=== PATIENT | male | born 1950 | race Caucasian/White ===

== ENCOUNTER → 2017-09-25 | Outpatient (CLI) | payer MEDICARE, MEDICAID ==
[~2017-09-25] MED LIST: ADVAI250I PO; ALBUAER3 INH; ASPI81TA82 PO; BUPR150T3 PO; CARV3.12 PO; CARV3.125 PO; D3 U5000 PO; DIVA250ER PO; DONE10TA7 PO; ENAL5TAB PO; FLUT1SPR9; FOLI1 PO; GABA300C5 PO; GABA600T PO; HYDR-3288 PO; INFL1INJ54 IM; INSU100V2 SQ; INSU1INJ14 SQ; KCL10C PO; LACT10SO PO; LAMO100 PO; LASI20TA PO; LORA-392 PO; LYRI75CA PO; MAPA325T PO; MECL12.574 PO; MELA5 PO; MEMA21CA PO; META0.52 PO; METO1TAB42 PO; NITR0.4S SL; NITR1SUB3 SL; NOVO7030P2 SQ; OXYB5TAB8 PO; PARO40TA2 PO; PAXI20TA26 PO; RISP0.5T2 PO; TAMS0.4C67 PO; THERM PO; THIA100T PO; TRAZ100 PO; VARE1 PO; VENTAER INH; VITA500T83 PO; WAL-10TA2 PO; [UNRECOGNIZED DRUG - CODE] PO
[2017-09-25 09:48] LABS: AUTOMATED NEUTROPHIL # 4.6 TH/MM3 (1.8-7.7); BASOPHIL % 0.3 % (0.0-2.0); EOSINOPHIL # 0.2 TH/MM3 (0-0.4); EOSINOPHIL % 2.7 % (0.0-4.0); HEMATOCRIT 38.3 % (39.0-51.0); HEMOGLOBIN 13.5 GM/DL (13.0-17.0); LYMPH % 19.6 % (9.0-44.0); LYMPHOCYTE # 1.3 TH/MM3 (1.0-4.8); MEAN CELL VOLUME 93.3 FL (80.0-100.0); MEAN CORPUSCULAR HEMOGLOBIN 32.8 PG (27.0-34.0); MEAN CORPUSCULAR HGB CONC 35.2 % (32.0-36.0); MEAN PLATELET VOLUME 6.6 FL (7.0-11.0); MONO % 10.1 % (0.0-8.0); MONOCYTE # 0.7 TH/MM3 (0-0.9); NEUT % 67.3 % (16.0-70.0); PLATELET COUNT 140 TH/MM3 (150-450); RED BLOOD COUNT 4.11 MIL/MM3 (4.50-5.90); RED CELL DISTRIBUTION WIDTH 13.7 % (11.6-17.2); WHITE BLOOD COUNT 6.8 TH/MM3 (4.0-11.0)
[2017-09-25 09:53] LABS: BILIRUBIN, URINE NEG (NEG); BLOOD, URINE NEG (NEG); GLUCOSE,URINE NEG (NEG); KETONE, URINE NEG (NEG); NITRITE,URINE NEG (NEG); SQUAMOUS EPITHELIAL CELL URINE <1 /hpf (0-5); URINE COLOR YELLOW (YELLW/STRAW); URINE LEUKOCYTE ESTERASE NEG (NEG)
[2017-09-25 10:10] LABS: ALBUMIN 3.6 GM/DL (3.4-5.0); AST (GOT) 11 U/L (15-37); BICARBONATE 26.2 MEQ/L (21.0-32.0); BLOOD UREA NITROGEN 13 MG/DL (7-18); CALCIUM 9.2 MG/DL (8.5-10.1); CHLORIDE 99 MEQ/L (98-107); GLOMERULAR FILTRATION RATE 75 ML/MIN (>89); GLUCOSE,FASTING 95 MG/DL (74-99); SODIUM (NA) 134 MEQ/L (136-145)
[2017-09-25 10:11] LABS: ALT (GPT) 24 U/L (12-78)
[2017-09-25 10:13] LABS: ALKALINE PHOSPHATASE 63 U/L (45-117); TOTAL BILIRUBIN ADULT 0.4 MG/DL (0.2-1.0); TOTAL PROTEIN 7.3 GM/DL (6.4-8.2)
--- NOTE | 2017-09-25 10:42 | RADRPT ---
EXAM DATE/TIME: 09/25/2017 09:50 [place] COMPARISON: No previous studies available for comparison. INDICATIONS : Evaluate for pneumonia, pneumothorax or communicable disease. Preop chest for knee replacement surger y on 10/04/17 MEDICAL HISTORY : Chronic obstructive pulmonary disease. Congestive heart failure. asthma, diabetic SURGICAL HISTORY : None. ENCOUNTER: Initial ACUITY: 1 day PAIN SCORE: 0/10 LOCATION: Bilateral chest FINDINGS: Lungs are hyperinflated. Mild chronic appearing interstitial prominence is noted. There is no evidenc e of consolidating air space disease, mass densities or effusions. Heart and mediastinal structures are unremarkable. Osseous structures are intact the CONCLUSION: 1. COPD 2. No acute process. Sammy Chun MD on September 25, 2017 at 10:39 Board Certified Radiologist. This report was verified electronically.
[2017-09-25 16:11] LABS: HEMOGLOBIN A1C 5.8 % (4.3-6.0)
--- NOTE | 2017-09-26 16:54 | EKG ---
Date Performed: 09/25/2017 Time Performed: 08:41:16 PTAGE: 66 years EKG: Sinus rhythm WITH FIRST DEGREE AV BLOCK MARKED LEFT AXIS DEVIATION INTRAVENTRICULAR CONDUCTION DELAY ABNORMAL ECG PREVIOUS TRACING 09/03/2015 @ 12.27.52 Since the previous tracing, no significant change noted DOCTOR: Osorio Vasques Interpretating Date/Time 09/26/2017 16:53:15
== END ==
LOC: CPRE 08:18
PROVIDERS: ATTEND Orthopaedic Surgery
DX: Z01.810 Encounter for preprocedural cardiovascular examination (principal); Z01.811 Encounter for preprocedural respiratory examination; Z01.812 Encounter for preprocedural laboratory examination; Z01.818 Encounter for other preprocedural examination; M17.11 Unilateral primary osteoarthritis, right knee; R94.31 Abnormal electrocardiogram [ECG] [EKG]
CPT/HCPCS: 36415; 71046; 80053; 81001; 83036; 85025; 93005

== ENCOUNTER → 2017-10-19 | Outpatient (CLI) | payer MEDICARE, MEDICAID ==
[~2017-10-19] MED LIST changes: -ADVAI250I PO; -ASPI81TA82 PO; -CARV3.125 PO; -D3 U5000 PO; -FLUT1SPR9; -FOLI1 PO; -GABA600T PO; -KCL10C PO; -LASI20TA PO; -META0.52 PO; -NITR0.4S SL; -NOVO7030P2 SQ; -PAXI20TA26 PO; -TAMS0.4C67 PO; -THERM PO; -THIA100T PO; -TRAZ100 PO; -VENTAER INH; -VITA500T83 PO; -WAL-10TA2 PO; -[UNRECOGNIZED DRUG - CODE] PO
[2017-10-19 12:10] LABS: AUTOMATED NEUTROPHIL # 4.5 TH/MM3 (1.8-7.7); BASOPHIL % 0.4 % (0.0-2.0); EOSINOPHIL # 0.2 TH/MM3 (0-0.4); EOSINOPHIL % 2.8 % (0.0-4.0); HEMATOCRIT 37.5 % (39.0-51.0); LYMPH % 16.1 % (9.0-44.0); MEAN CORPUSCULAR HEMOGLOBIN 32.2 PG (27.0-34.0); MEAN CORPUSCULAR HGB CONC 34.6 % (32.0-36.0); MEAN PLATELET VOLUME 7.1 FL (7.0-11.0); MONO % 8.7 % (0.0-8.0); MONOCYTE # 0.6 TH/MM3 (0-0.9); PLATELET COUNT 116 TH/MM3 (150-450); RED BLOOD COUNT 4.04 MIL/MM3 (4.50-5.90); RED CELL DISTRIBUTION WIDTH 13.3 % (11.6-17.2); WHITE BLOOD COUNT 6.3 TH/MM3 (4.0-11.0)
[2017-10-19 12:51] LABS: BICARBONATE 24.7 MEQ/L (21.0-32.0); CALCIUM 8.7 MG/DL (8.5-10.1); CREATININE 1.07 MG/DL (0.60-1.30)
[2017-10-19 14:38] LABS: BILIRUBIN, URINE NEG (NEG); BLOOD, URINE NEG (NEG); GLUCOSE,URINE >=500 mg/dL (NEG); KETONE, URINE NEG (NEG); MUCUS URINE FEW /lpf (OCC); NITRITE,URINE NEG (NEG); URINE COLOR YELLOW (YELLW/STRAW); URINE LEUKOCYTE ESTERASE NEG (NEG)
== END ==
LOC: CPRE 10:59
PROVIDERS: ATTEND Orthopaedic Surgery
DX: Z01.812 Encounter for preprocedural laboratory examination (principal); M17.11 Unilateral primary osteoarthritis, right knee
CPT/HCPCS: 36415; 80048; 81001; 85025

== ENCOUNTER 2017-11-22 05:23 | Inpatient (IN) ==
--- NOTE | 2017-11-21 20:00 | MH ---
cc: Nathan Oerllana MD, Srinivasa MD DATE OF ADMISSION: 11/22/2017 ADMISSION DIAGNOSIS: End-stage osteoarthritis, right knee. PAST MEDICAL HISTORY: 1. Insulin-dependent diabetes on insulin 2. Heart disease. 3. Hernia repair. 4. Hernia 5. High blood pressure 6. Lung disease due to chronic smoking (patient stopped smoking several weeks ago), 7. Anxiety and depression 8. Low back pain 9. Early dementia. PAST SURGICAL HISTORY: 1. Hernia repair, subsequent to colectomy and colostomy for diverticulosis. 2. Right shoulder surgery in 2009. 3. C5 fusion several years ago. 4. Total hip replacement arthroplasty, right hip, done by the undersigned several years ago. CURRENT MEDICATIONS: 1. Namenda. 2. Metoprolol. 3. Paroxetine. 4. Risperidone 5. Carvedilol . 6. Meclizine. 7. Humulin insulin. 8. Hydrocodone 7.5 as needed for pain, 9. Tylenol as needed. 10. Lorazepam p.r.n. 11. Ventolin inhaler 12. Nitroglycerin as needed. HISTORY OF PRESENT ILLNESS: The patient saw me in 07/2017 complaining of ongoing symptoms of pain and instability of the right knee that has been treated in the past including treatment by Dr. You last year with steroid injections. The patient decided he needed to have total knee replacement and sought the undersigned to do the procedure. Patient was evaluated and treated. He was advised about smoking cessation, proper control her diabetes and other aspects and he was given a steroid injection at the time, which did not help him any. The patient has since been scheduled for a total knee replacement arthroplasty. The diagnosis, treatment, prognosis and the potential risks, hazards, complications, and expected results have all been discussed in detail. His last hemoglobin A1c was below 7. That was done about 2 to 3 months ago. He has been medically evaluated by Dr. Caputo, who sees no contraindication to surgery. The patient had to be postponed recently because of an abrasion several weeks ago of the heel and then he came in with a rash that eventually resolved. Now, he is in proper situation to have the surgery. He has stopped smoking and he uses Chantix. PHYSICAL EXAMINATION: GENERAL: Elderly white male who is awake, alert and oriented. He uses sometimes a cane, sometimes 4 wheeled walker and sometimes walks without assistive device. He has a valgus deformity of the right knee. He has palpable pedal pulses and he moves his toes well. He has some mild or minimal edema of the feet. No pain on range of motion of the right hip. There is pain and tenderness of the lateral joint line. There is some crepitus in the right knee. There is swelling, but no redness or effusion. HEENT: Head is normocephalic. Pupils reactive to light. He wears glasses. Face symmetrical. HEART: Regular rate and rhythm. No murmurs. LUNGS: Clear to auscultation. ABDOMEN: Soft and supple. Patient's preoperative workup included CBC with differential count, CRP and urinalysis are normal. A few weeks ago, he had EKG done which showed no change from EKG done in 2016 with no acute changes. Chest x-ray is unremarkable. The diagnosis, treatment and prognosis and the potential risks, hazards, complications, and expected results, postoperative course, post-hospital course, pain management, nerve blocks have all been discussed with him, venous thrombosis prevention has been discussed. Informed consent obtained. No guarantees made. MD KAPIL Park/ , 07:36 PM , 07:59 PM
[2017-11-22] MEDS ORDERED: Propofol Inj 500 MG/50 ML Vial ONE (06:10)
[2017-11-22] MEDS ORDERED: Sodium Chlor 0.9% Inj 60 ML, Bupivacaine Liposo PF 1.3% Inj 20 ML P-ARTICULR SCH ×2 (06:15)
[2017-11-22] MEDS ORDERED: Insulin NovoLIN Regular Correctional Sugar Inj SQ SCH ×2 (06:15→12:00)
[2017-11-22] MEDS ORDERED: Chlorhexidine Gluconate 2% 1 Pack (2 Cloths) TOPICAL SCH (06:15)
[2017-11-22] MEDS ORDERED: Bupivacaine/Dextrose 0.75% Inj 2 ML Ampul ONE (06:16)
[2017-11-22] MEDS: ceFAZolin 2 GM Premix Inj 2 GM/50 ML PIGGYBACK IV.SIG SCH ×6 (06:30→23:41)
[2017-11-22] MEDS: Vancomycin Inj 1 GM/200 ML PIGGYBACK IV.SIG SCH ×2 (06:30→08:01)
[2017-11-22] MEDS: Metoprolol Tartrate 25 MG Tablet PO SCH (06:34)
[2017-11-22] MEDS ORDERED: Bupivacaine Liposomal PF 1.3% Inj 20 ML Vial ONE (06:36)
[2017-11-22] MEDS ORDERED: Sodium Chlor 0.9% Inj 500 ML IV.SIG SCH (07:00)
[2017-11-22] MEDS: TRANEXAMIC ACID IV.SIG SCH ×2 (07:08→07:58)
[2017-11-22] MEDS: SODIUM CHLOR 0.9% IV.SIG SCH ×2 (07:08→07:58)
[2017-11-22] MEDS ORDERED: Tobramycin Sulfate 1,200 MG Vial (for ortho/sterile core) OTHER ONE (08:07)
[2017-11-22] MEDS ORDERED: TRANEXAMIC ACID IV.SIG SCH (09:15)
[2017-11-22] MEDS ORDERED: SODIUM CHLOR 0.9% IV.SIG SCH (09:15)
[2017-11-22] MEDS ORDERED: Post-op Orders (for Pharmacy) OTHER STA (09:23)
[2017-11-22] MEDS ORDERED: Bisacodyl 10 MG Supp RECTAL PRN (09:23)
[2017-11-22] MEDS ORDERED: Naloxone Inj 0.4 MG/ML Vial IV.PUSH PRN (09:23)
[2017-11-22] MEDS ORDERED: Aluminum/Magnesium/Simethacone Susp 30 ML UDC PO PRN (09:23)
[2017-11-22] MEDS ORDERED: fentaNYL Citrate Inj 100 MCG/2 ML Ampul ONE (09:33)
--- NOTE | 2017-11-22 09:39 | MP ---
cc: Nathan Orellana MD DATE OF OPERATION: 11/22/2017 PREOPERATIVE DIAGNOSIS: Osteoarthritis, right knee. POSTOPERATIVE DIAGNOSIS: Osteoarthritis, right knee. OPERATIVE PROCEDURE: Total knee replacement arthroplasty, right knee using [employer] components. The components were cemented. Femoral component, 70 mm right, tibial component, 75 mm with I-beam stem, polyethylene 12 mm flat. Patella was not resurfaced. SURGEON: Nathan Orellana MD ANESTHESIA: Spinal. TECHNIQUE: After induction of adductor block and spinal anesthesia, the right lower extremity thoroughly prepped with alcohol and ChloraPrep and draped in routine fashion. Tourniquet was not used. A midline incision was made, deepened through subcutaneous tissue. Limited flaps were raised. Medial parapatellar arthrotomy incision was carried out. The findings were that the predominant involvement was lateral compartment where there was a deep divot posterolateral tibial plateau. Patella is quite satisfactory with full-thickness cartilage present and no need to resurface. After initial anterior debridement, the femoral canal opened anterior to the posterior cruciate ligament and the distal femoral cutting guide set at 5 degrees was used to make the distal femoral cut. AP femoral guide was used with proper external rotation taking into account that This is a valgus knee. The AP and chamfer cuts were made for a 70 mm implant. The tibial cut was then made referencing 6 mm from the center of the unaffected medial tibial plateau using the external guide with slight posterior inclination and once this was done, further debridement of the joint was carried out after which a spacer block was used and the spacer block was tight laterally and not medially in extension, but satisfactory in flexion. Therefore, we proceeded to release the arcuate ligament from the lateral tibial plateau posterior to the patellar tendon attachment to the posterolateral corner. The iliotibial band was then cut in a Z-plasty fashion. The spacer block now fits well except it is still tight in extension, but it is symmetrical medially and laterally. Therefore, additional 2 mm of bone was removed from the distal femur, followed by recutting the chamfers and then putting the trial implants in which looked good with a 10 mm spacer, a little tight in extension than the 12 mm spacer. Patella tracks well. Some debridement of the synovium carried out around the patella. The trial implants were removed. Bony surfaces thoroughly lavaged and dried. A diluted Exparel solution injected periarticularly. Femoral canal plugged with bone. Using 2 units of Simplex cement with 1200 mg of tobramycin in it, the tibia was cemented first in satisfactory external rotation, followed by the femur and then extending the knee with a 12 mm insert. Once cement solidified, the knee was tested and decided to stick with the 12 mm poly and a 12 mm poly was inserted and clipped. Final position, alignment and stability were all good. An 1/8 inch Hemovac drain left in the suprapatellar pouch, brought out through a stab incision. A mixture of 100 mL of saline with 17.5 mL of Betadine solution was then placed in the knee joint, 1 with the trial insert in place, and again after the polyethylene insert was placed. Final irrigation was carried out and closure was carried out with the knee in mid flexion with 3 interrupted #2 Vicryl sutures and the rest with running #2 Quill, subcutaneous tissue, 2-0 Vicryl, skin with 3-0 subcuticular Quill and Steri-Strips. Dressings applied Xeroform, 4 x 4s, ABD, Sof-Rol and Dalton bandage incorporating an ice bladder. The patient tolerated the procedure well. TRANSFUSIONS AND COMPLICATIONS: None. POSTOPERATIVE CONDITION: Satisfactory. PROGNOSIS: Good. ESTIMATED BLOOD LOSS: 100 mL. We did not use a tourniquet. MD KAPIL Park/ALEJO , 09:10 AM , 09:37 AM
[2017-11-22] MEDS ORDERED: Acetaminophen 325 MG Tablet PO PRN (09:47)
[2017-11-22] MEDS ORDERED: Morphine Inj 30 MG/30 ML PCA.VIAL PCA PRN (09:47)
[2017-11-22] MEDS ORDERED: Tranexamic Acid Inj 0 MG in Sodium Chlor 0.9% Inj 100 ML IV.SIG ONE (09:47)
[2017-11-22] MEDS ORDERED: Dextrose 50% in Water 50 ML Vial IV.PUSH PRN ×2 (10:01→16:03)
[2017-11-22] MEDS ORDERED: Nitroglycerin SL (Override) 0.4 MG Tab SL PRN (10:05)
[2017-11-22] MEDS ORDERED: Dextrose 50% in Water Syringe 50 ML ONE (10:38)
--- NOTE | 2017-11-22 10:51 | XR ---
EXAM DATE: 11/22/2017 10:40 AM EDT AGE/SEX: 66 years / Male INDICATIONS: Post op right knee. CLINICAL DATA: This is the patient's initial encounter. Patient reports that signs and symptoms have been present for 1 day and indicates a pain score of Nonresponsive. MEDICAL/SURGICAL HISTORY: None. None. COMPARISON: No prior exams available for comparison. FINDINGS: Status post right knee prosthesis. There is good position and alignment of the prosthesis within the bony structures. Postsurgical changes are demonstrated. CONCLUSION: Good position and alignment on this postoperative study. Electronically signed by: Jone Hickman MD 11/22/2017 10:50 AM EDT
[2017-11-22] MEDS: Ketorolac Inj 30 MG/ML (IVP) Vial IV.PUSH SCH ×3 (11:20→23:40)
[2017-11-22] MEDS: Sod Chloride 0.9% Inj 1,000 ML IV.CONT SCH ×2 (11:56→22:16)
[2017-11-22] MEDS: Gabapentin 300 MG Capsule PO SCH ×2 (14:16→18:28)
[2017-11-22] MEDS ORDERED: LORazepam 0.5 MG Tablet PO PRN (16:25)
--- NOTE | 2017-11-22 16:45 | P.CONIM ---
History of Present Illness Consult date: 11/22/17 Reason for Consult: Medical management Primary Care Provider: Remy Caputo MD Family Provider: Remy Caputo MD Chief Complaint: Knee pain History of Present Illness: The patient is a 66-year-old male with past medical history of diabetes, CAD and COPD who is presenting to the hospital for a right knee replacement. The patient says that he has had severe arthritis. He uses a 4 wheeled walker at his assisted living facility. He has been taking Spencer for pain control over there. He says he has had problems falling secondary to vertigo. He says he has had vertigo for a while but it has gotten worse recently. The patient had total right knee replacement on 11/22/2017. He is currently on a DIE REPAIRER TRIMMER DIES pump but still having significant pain. He says he has had right hip surgery in the past and it was not as bad. He thinks he may need extra pain medication on top of the DIE REPAIRER TRIMMER DIES. He says that he has had a bothersome rash on the left side of his body in the flank area. He said it was very itchy. He says he has had a history of scabies and was hoping it was not scabies again. He says that he is prone to constipation. Review of Systems All other systems reviewed negative except as stated in HPI PMFSH - History History Provided By: Patient - Medical History Medical History: Medical History (Last Updated 11/22/17 @ 06:05 by Suad Butler) Hemochromatosis Acute pulmonary edema Anxiety Arthritis Asthma CAD (coronary artery disease) CHF (congestive heart failure) COPD (chronic obstructive pulmonary disease) Cirrhosis of liver Dementia Depression Diabetes Diabetic nephropathy Enlarged prostate Frequent headaches Fusion of spine, cervical region GERD (gastroesophageal reflux disease) H/O ETOH abuse H/O acute myocardial infarction H/O bipolar disorder H/O chest pain H/O gastric ulcer H/O methicillin resistant Staphylococcus aureus H/O scabies Hiatal hernia History of abdominal hernia Hypertension Renal disease Shortness of breath on exertion Skin cancer Sleep apnea Smoker Vertigo Wears glasses Wears partial dentures - Surgical History Surgical History: Surgical History (Last Reviewed 11/22/17 @ 06:05 by Suad Butler) H/O cardiac catheterization H/O inguinal hernia repair H/O rotator cuff surgery History of cholecystectomy History of colostomy reversal History of partial colectomy History of total right hip replacement - Tobacco History Second Hand Smoke Exposure: No Tobacco Use In Past 30 Days: No Smoking Status: Current every day smoker Tobacco Type: Cigarettes Cigarettes Per Day: 5 - Alcohol History How Often Do You Have a Drink Containing Alcohol: Never - Substance Use History Substance History: Past History - Travel History Recent Travel in the [place] Within the Last 8 Weeks: No Recent Travel Out of the Country Within the Last 8 Weeks: No Medications and Allergies Active Medications: Active Medications Acetaminophen (Tylenol) 650 mg PO Q6H PRN PRN Reason: TEMP>100.4F,IRRITABLE Hydrocodone Bitart/Acetaminophen (Spencer 5/325) 2 tab PO Q6H PRN PRN Reason: PAIN SCALE 5 TO 10 Al Hydrox/Mg Hydrox/Simethicone (Mag-Al Plus Susp Liq) 30 ml PO Q6H PRN PRN Reason: INDIGESTION Al Hydroxide/Mg Hydroxide (Milk Of Magnesia Liq) 30 ml PO BID PRN PRN Reason: Mild Constipation Albuterol (Ventolin Hfa Inh) 2 puff INH Q6H PRN PRN Reason: SHORTNESS OF BREATH Bisacodyl (Dulcolax Supp) 10 mg RECTAL DAILY PRN PRN Reason: SEVERE CONSITIPATION Bupropion HCl (Wellbutrin Sr) 150 mg PO DAILY [facility] Carvedilol (Coreg) 3.125 mg PO BID [facility] Chlorhexidine Gluconate (Chlorhexidine 2% Cloth) 3 pack 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 [facility] Stop: 11/25/17 06:09 Last Admin: 11/22/17 05:30 Dose: 3 pack Sodium Chloride 60 ml/ (Bupivacaine Liposome 20 ml) 0 ml P-ARTICULR ONCE [facility] Dextrose (D50w Vial) 50 ml IV.PUSH UNSCH PRN PRN Reason: PER HYPOGLYCEMIA PROTOCOL Diphenhydramine HCl (Benadryl Inj) 25 mg IV.PUSH Q6H PRN PRN Reason: for itching Divalproex Sodium (Depakote Er) 750 mg PO HS [facility] Donepezil HCl (Aricept) 10 mg PO HS [facility] Enalapril Maleate (Vasotec) 5 mg PO DAILY [facility] Gabapentin (Neurontin) 300 mg PO TID [facility] Last Admin: 11/22/17 14:16 Dose: 300 mg Glucagon (Glucagon Inj) 1 mg OTHER UNSCH PRN PRN Reason: for Hypoglycemia Protocol Lactated Ringer's (Lr 1000 Ml Inj) 1,000 mls @ 30 mls/hr IV.SIG .Q24H [facility] Stop: 11/25/17 06:09 Last Admin: 11/22/17 09:11 Dose: 30 mls/hr Sodium Chloride (Ns Inj) 500 mls @ 30 mls/hr IV.SIG .Q10H [facility] Stop: 11/25/17 06:09 Tranexamic Acid 939 mg/ Sodium (Chloride) 109.39 mls @ 200 mls/hr IV.SIG ONCE [facility] Stop: 11/23/17 06:59 Last Admin: 11/22/17 07:58 Dose: 200 mls/hr Tranexamic Acid 939 mg/ Sodium (Chloride) 109.39 mls @ 200 mls/hr IV.SIG ONCE [facility] Stop: 11/23/17 09:14 Last Infusion: 11/22/17 10:49 Dose: 200 mls/hr Cefazolin Sodium/Dextrose (Ancef 2 Gm Premix Inj) 2 gm in 50 mls @ 100 mls/hr IV.SIG PRIMARY [employer] [facility] Stop: 11/26/17 06:59 Last Admin: 11/22/17 07:53 Dose: 100 mls/hr Vancomycin/Sodium Chloride (Vancomycin Inj) 1 gm in 200 mls @ 200 mls/hr IV.SIG PRIMARY [employer] [facility] Stop: 11/26/17 06:59 Last Admin: 11/22/17 08:01 Dose: 200 mls/hr Morphine Sulfate (Morphine Inj) 30 mg in 30 mls @ 0 mls/hr DIE REPAIRER TRIMMER DIES UNSCH PRN PRN Reason: per DIE REPAIRER TRIMMER DIES parameters Stop: 11/23/17 09:46 Sodium Chloride (Ns Inj) 1,000 mls @ 100 mls/hr IV.CONT .Q10H [facility] Last Admin: 11/22/17 11:56 Dose: 100 mls/hr Acetaminophen (Ofirmev Inj) 1,000 mg in 100 mls @ 400 mls/hr IV.SIG Q12HR PRN PRN Reason: PAIN SCALE 1 TO 10 Stop: 11/24/17 20:00 Vancomycin/Sodium Chloride (Vancomycin Inj) 1 gm in 200 mls @ 200 mls/hr IV.SIG Q12H [facility] Stop: 11/23/17 06:59 Cefazolin Sodium/Dextrose (Ancef 2 Gm Premix Inj) 2 gm in 50 mls @ 100 mls/hr IV.SIG Q6H [facility] Stop: 11/23/17 00:29 Last Admin: 11/22/17 11:56 Dose: 100 mls/hr Insulin Aspart (Novolog Insulin Correctional Sugar Inj) [address] [facility]; Protocol Insulin Detemir (Levemir Inj) 10 unit SQ HS [facility] Ketorolac Tromethamine (Toradol Inj) 15 mg IV.PUSH Q6H [facility] Stop: 11/24/17 05:01 Last Admin: 11/22/17 11:20 Dose: Not Given Lamotrigine (Lamictal) 100 mg PO BID [facility] Lorazepam (Ativan) 0.5 mg PO TID PRN PRN Reason: Anxiety Melatonin (Melatonin) 5 mg PO HS [facility] Metoprolol Tartrate (Lopressor) 25 mg PO [employer] [facility] Stop: 11/25/17 06:09 Last Admin: 11/22/17 06:34 Dose: Not Given Metoprolol Tartrate (Lopressor) 25 mg PO DAILY [facility] Miscellaneous Information ([facility] Information) 0 each OTHER UNSCH PRN PRN Reason: SEE DOSE INSTRUCTIONS Miscellaneous Information ([facility] Information) 1 each OTHER UNSCH PRN PRN Reason: SEE LABEL COMMENTS Stop: 11/23/17 09:24 Naloxone HCl (Narcan Inj) 0.4 mg IV.PUSH PRN PRN PRN Reason: Resp rate < 10 Nitroglycerin (Nitrostat Sl (Override)) 0.4 mg SL Q5M PRN PRN Reason: Chest Pain Non-Formulary Medication (Lactulose [Lactulose]) 10 gm PO DAILY PRN PRN Reason: Constipation Ondansetron HCl (Zofran Inj) 4 mg IV.PUSH Q6H PRN PRN Reason: NAUSEA OR VOMITING Oxybutynin Chloride (Ditropan) 5 mg PO BID [facility] Paroxetine HCl (Paxil) 40 mg PO DAILY [facility] Pt Own Med: Menantine 21mg Po Daily 1 each PO DAILY [facility] Povidone Iodine (Betadine 5% Antisepsis Kit) 1 applicatio EACH NARE [employer] [facility] Stop: 11/25/17 06:09 Last Admin: 11/22/17 06:15 Dose: 1 applicatio Povidone Iodine (Betadine 7.5% Scrub) 1 applicatio TOPICAL ONCE [facility] Stop: 11/26/17 06:59 Last Admin: 11/22/17 06:00 Dose: 1 applicatio Pregabalin (Lyrica) 75 mg PO BID [facility] Risperidone (Risperdal) 0.5 mg PO HS [facility] Rivaroxaban (Xarelto) 10 mg PO DAILY [facility] Sennosides (Senokot) 17.2 mg PO BID PRN PRN Reason: Moderate Constipation Sodium Chloride (Ns Flush) 2 ml IV.FLUSH BID [facility] Sodium Chloride (Ns Flush) 2 ml IV.FLUSH PRN PRN PRN Reason: FLUSH AFTER USING IV ACCESS Varenicline (Chantix) 1 mg PO BID [facility] Allergies Allergy/AdvReac Type Severity Reaction Status Date / Time No Known Allergies Allergy Unverified 11/22/17 05:47 Home Medications Medication Instructions Recorded Confirmed Type acetaminophen 325 mg PO Q6H PRN 11/17/17 11/22/17 History acetaminophen 650 mg PO Q6H PRN 11/17/17 11/22/17 History albuterol sulfate [Ventolin HFA] 2 puff INHALATION Q6H PRN 11/17/17 11/22/17 History ammonium lactate [AmLactin] 1 applic TOPICAL BID PRN 11/17/17 11/22/17 History bupropion HCl 150 mg PO QAM 11/17/17 11/22/17 History carvedilol 3.125 mg PO BID 11/17/17 11/22/17 History diphenhydramine HCl [Banophen] 25 mg PO Q6H PRN 11/17/17 11/22/17 History divalproex 750 mg PO HS 11/17/17 11/22/17 History donepezil 10 mg PO HS 11/17/17 11/22/17 History enalapril maleate 5 mg PO DAILY 11/17/17 11/22/17 History gabapentin 300 mg PO TID 11/17/17 11/22/17 History hydrocodone-acetaminophen 1 tab PO Q6H PRN 11/17/17 11/22/17 History insulin degludec [Tresiba 90 unit SUB-Q DAILY 11/17/17 11/22/17 History FlexTouch U-200] insulin regular human [Humulin R 1 sliding scale dose SUB-Q ACHS 11/17/17 History Regular U-100 Insuln] lactulose 10 gm PO DAILY PRN 11/17/17 11/22/17 History lamotrigine 100 mg PO BID 11/17/17 11/22/17 History lorazepam 0.5 mg PO TID PRN 11/17/17 11/22/17 History meclizine 12.5 mg PO TID 11/17/17 11/22/17 History melatonin 5 mg PO HS 11/17/17 11/22/17 History memantine 21 mg PO DAILY 11/17/17 11/22/17 History metoprolol tartrate 25 mg PO DAILY 11/17/17 11/22/17 History nitroglycerin 0.4 mg SUBLINGUAL Q5-15M PRN 11/17/17 11/22/17 History nystatin 1 applic TOPICAL BID 11/17/17 11/22/17 History oxybutynin chloride 5 mg PO BID 11/17/17 11/22/17 History paroxetine HCl 40 mg PO DAILY 11/17/17 11/22/17 History pregabalin [Lyrica] 75 mg PO BID 11/17/17 11/22/17 History risperidone 0.5 mg PO HS 11/17/17 11/22/17 History varenicline [Chantix] 1 mg PO BID 11/17/17 11/22/17 History Exam Vital signs: Vital Signs 11/22/17 06:30 11/22/17 09:25 11/22/17 09:45 Temperature 97.4 F L Pulse Rate 71 63 65 Respiratory Rate 12 12 Blood Pressure 117/56 L 135/70 Pulse Oximetry 100 100 99 11/22/17 10:00 11/22/17 10:15 11/22/17 10:30 Temperature Pulse Rate 63 67 65 Respiratory Rate 14 12 12 Blood Pressure 155/69 H 141/71 H 143/67 H Pulse Oximetry 97 98 99 11/22/17 10:45 11/22/17 11:00 11/22/17 11:10 Temperature Pulse Rate 66 68 Respiratory Rate 12 12 12 Blood Pressure 147/68 H 161/70 H Pulse Oximetry 98 98 11/22/17 11:15 11/22/17 11:30 11/22/17 11:45 Temperature 97.6 F Pulse Rate 66 66 66 Respiratory Rate 12 12 12 Blood Pressure 147/69 H 150/69 H 144/70 H Pulse Oximetry 98 99 99 11/22/17 12:00 Temperature 97.3 F L Pulse Rate 72 Respiratory Rate 20 Blood Pressure 152/72 H Pulse Oximetry 98 Intake & Output 11/21/17 11/22/17 11/22/17 18:59 06:59 18:59 Intake Total 2468.39 / 2468.39 Output Total 500 / 500 Balance 1968.39 / 1968.39 Weight 93.9 kg 93.9 kg Intake: IV 1468.39 / 1468.39 LR 1000 mL Inj 1,000 ML @ 30 1000 / 1000 mls/hr IV.SIG .Q24H [facility] Rx#: [id number] Cyklokapron Inj 939 MG In NS 218.39 / 218.39 Inj 100 ML @ 200 mls/hr IV.SIG ONCE [facility] Rx#:[id number] Vancomycin Inj 1 gm In 200 ml @ 200 / 200 200 mls/hr IV.SIG PRIMARY [employer] [facility] Rx#:[id number] Ancef 2 GM Premix Inj 2 gm In 50 / 50 50 ml @ 100 mls/hr IV.SIG PRIMARY [employer] [facility] Rx#:[id number] Anesthesia Amount 1000 / 1000 Output: Urine 300 / 300 Estimated Blood Loss 100 / 100 Wound Drainage 100 / 100 Right Knee 100 / 100 Other: Date of Last Bowel Movement 11/19/17 Weight On Admission 93.9 kg Narrative: GENERAL: NAD HEENT: NC, AT LUNGS: CTAB HEART: RRR GI: Abdomen soft, nontender EXTREMITIES: Right knee is bandaged. TR-1+ LE extremity edema noted SKIN: Mild rash on left flank NEURO: No gross deficits Results - Labs Labs: Laboratory Results - last 24 hr 11/22/17 11/22/17 11/22/17 06:00 06:15 10:22 POC Glucose 95 70 Blood Type A Positive Blood Type Recheck Not needed Antibody Screen Negative 11/22/17 11:03 POC Glucose 116 H Blood Type Blood Type Recheck Antibody Screen - Imaging Impressions Knee X-Ray 11/22/17 09:44 CONCLUSION: Good position and alignment on this postoperative study. Assessment and Plan - Plan OA S/p right knee replacement 11/22. - pain control with a bowel regimen. - wound care, weightbearing and anticoagulation per surgery. - incentive spirometry. - rehab efforts. DM Type 1. - insulin sliding scale. - Levemir 10 units HS. - adjust regimen as needed. Rash Involving left flank. Appears to be dermatitis, possibly eczema. - trial of steroid cream. PPx: Per surgery
[2017-11-22] MEDS: buPROPion 150 MG 12 HR Tablet PO SCH (17:02)
[2017-11-22] MEDS: Insulin NovoLOG Aspart Correctional Sugar Inj SQ SCH ×2 (17:18→21:14)
[2017-11-22] MEDS ORDERED: Phenylephrine/NS 1000 MCG/10ML Syringe IV.PUSH ONE (17:47)
[2017-11-22] MEDS ORDERED: Vancomycin Inj 1 GM/200 ML PIGGYBACK IV.SIG SCH (18:00)
[2017-11-22] MEDS ORDERED: Vancomycin Inj 1,000 MG in Sodium Chlor 0.9% Inj 250 ML IV.SIG SCH (18:00)
[2017-11-22] MEDS: Pregabalin 75 MG Capsule PO SCH (21:11)
[2017-11-22] MEDS: Divalproex 250 MG ER Tablet PO SCH (21:11)
[2017-11-22] MEDS: Varenicline 1 MG Tablet PO SCH (21:12)
[2017-11-22] MEDS: Hydrocortisone 2.5% Cream 30 GM Tube TOPICAL SCH (21:12)
[2017-11-22] MEDS: lamoTRIgine 100 MG Tablet PO SCH (21:12)
[2017-11-22] MEDS: Insulin Detemir Inj 1,000 UNIT/10 ML Vial SQ SCH (21:13)
[2017-11-22] MEDS: Melatonin 5 MG Tablet PO SCH (22:43)
[2017-11-23] MEDS: Ketorolac Inj 30 MG/ML (IVP) Vial IV.PUSH SCH ×4 (05:38→22:18)
[2017-11-23 05:52] LABS: Calcium 8.1 mg/dL (8.5-10.1); Carbon Dioxide 27.5 meq/L (21.0-32.0); Potassium 4.1 meq/L (3.5-5.1)
[2017-11-23 05:55] LABS: Hematocrit 32.2 % (39.0-51.0); Hemoglobin 11.1 gm/dL (13.0-17.0); Mean Corpuscular HGB Conc 34.5 % (32.0-36.0); Mean Corpuscular Hemoglobin 32.8 pg (27.0-34.0); Mean Corpuscular Volume 95.2 fL (80.0-100.0); Mean Platelet Volume 6.7 fL (7.0-11.0); Platelet Count 101 th/mm3 (150-450); Red Blood Count 3.39 mil/mm3 (4.50-5.90); Red Cell Distribution Width 13.4 % (11.6-17.2); White Blood Count 5.9 th/mm3 (4.0-11.0)
[2017-11-23] MEDS ORDERED: MEMANTINE 21 MG PO SCH (09:00)
[2017-11-23] MEDS: buPROPion 150 MG 12 HR Tablet PO SCH (09:00)
[2017-11-23] MEDS: Hydrocortisone 2.5% Cream 30 GM Tube TOPICAL SCH ×2 (09:00→21:30)
[2017-11-23] MEDS: Metoprolol Tartrate 25 MG Tablet PO SCH ×2 (09:00→10:27)
[2017-11-23] MEDS: Insulin NovoLOG Aspart Correctional Sugar Inj SQ SCH ×3 (10:14→17:00)
[2017-11-23] MEDS: Rivaroxaban 10 MG Tablet PO SCH (10:25)
[2017-11-23] MEDS: lamoTRIgine 100 MG Tablet PO SCH ×2 (10:27→21:28)
[2017-11-23] MEDS: Varenicline 1 MG Tablet PO SCH ×2 (10:27→21:29)
[2017-11-23] MEDS: Pregabalin 75 MG Capsule PO SCH ×2 (10:27→21:29)
[2017-11-23] MEDS: Gabapentin 300 MG Capsule PO SCH ×3 (10:27→18:30)
[2017-11-23] MEDS: Sod Chloride 0.9% Inj 1,000 ML IV.CONT SCH (10:30)
--- NOTE | 2017-11-23 11:24 | P.PNIM ---
Subjective Interval history: The patient was sitting in a chair. He said his pain was controlled. He had no acute complaints. Discussed with nursing. 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 Physical Exam Vital signs: Vital Signs 11/22/17 11:30 11/22/17 11:45 11/22/17 12:00 Temperature 97.6 F 97.3 F L Pulse Rate 66 66 72 Respiratory Rate 12 12 20 Blood Pressure 150/69 H 144/70 H 152/72 H Pulse Oximetry 99 99 98 11/22/17 16:00 11/22/17 17:48 11/22/17 20:00 Temperature 97.5 F L 97.0 F L Pulse Rate 78 78 Respiratory Rate 18 14 18 Blood Pressure 110/54 L 131/62 Pulse Oximetry 100 98 11/23/17 00:00 11/23/17 03:30 11/23/17 04:00 Temperature 97.4 F L 97.6 F Pulse Rate 83 80 Respiratory Rate 18 16 18 Blood Pressure 132/74 117/64 Pulse Oximetry 97 95 11/23/17 08:00 11/23/17 10:40 Temperature 97.5 F L Pulse Rate 78 81 Respiratory Rate 18 Blood Pressure 118/58 L 114/55 L Pulse Oximetry 93 L Intake & Output 11/22/17 11/23/17 11/23/17 18:59 06:59 18:59 Intake Total 2618.39 / 2618.39 1000 / 1000 Output Total 500 / 500 200 / 200 Balance 2118.39 / 2118.39 800 / 800 Weight 93.9 kg 93.9 kg Intake: IV 1618.39 / 1618.39 1000 / 1000 NS Inj 1,000 ML @ 100 mls/hr IV 1000 / 1000 .CONT .Q10H [facility] Rx#:[id number] LR 1000 mL Inj 1,000 ML @ 30 1000 / 1000 mls/hr IV.SIG .Q24H [facility] Rx#: [id number] Cyklokapron Inj 939 MG In NS 218.39 / 218.39 Inj 100 ML @ 200 mls/hr IV.SIG ONCE [facility] Rx#:[id number] Vancomycin Inj 1 gm In 200 ml @ 200 / 200 200 mls/hr IV.SIG PAR[employer]OFESSION[employer] AIDE TE[employer]ER [facility] Rx#:[id number] Ancef 2 GM Premix Inj 2 gm In 200 / 200 50 ml @ 100 mls/hr IV.SIG Q6H [facility] Rx#:[id number] Anesthesia Amount 1000 / 1000 Output: Urine 300 / 300 Estimated Blood Loss 100 / 100 Wound Drainage 100 / 100 200 / 200 Right Knee 100 / 100 200 / 200 Other: Date of Last Bowel Movement 11/19/17 11/19/17 Narrative: GENERAL: NAD HEENT: NC, AT LUNGS: CTAB HEART: RRR GI: Abdomen soft, nontender EXTREMITIES: Right knee is bandaged. TR-1+ LE extremity edema noted SKIN: Mild rash on left flank NEURO: No gross deficits - Urinary Catheter Management Indwelling Urethral Catheter Cath placed during this visit: yes, but has since been removed by the nurse Reason for continuing: Not indwelling catheter Insertion date: 11/23/17 Insertion time: 06:20 Removal date: 11/23/17 Removal time: 06:40 Results - Labs CBC & Chem 7: 11/23/17 04:55 11/23/17 04:55 Laboratory Results - last 24 hr 11/22/17 11/22/17 11/23/17 17:03 21:01 04:55 WBC 5.9 RBC 3.39 L Hgb 11.1 L Hct 32.2 L MCV 95.2 MCH 32.8 MCHC 34.5 RDW 13.4 Plt Count 101 L D MPV 6.7 L Sodium Potassium Chloride Carbon Dioxide Anion Gap BUN Creatinine Estimated GFR POC Glucose 167 H 232 H Random Glucose Calcium 11/23/17 04:55 WBC RBC Hgb Hct MCV MCH MCHC RDW Plt Count MPV Sodium 139 Potassium 4.1 Chloride 104 Carbon Dioxide 27.5 Anion Gap 8 BUN 15 Creatinine 1.16 Estimated GFR 63 L POC Glucose Random Glucose 115 H Calcium 8.1 L Assessment and Plan - Plan OA S/p right knee replacement 11/22. - pain control with a bowel regimen. - wound care, weightbearing and anticoagulation per surgery. - incentive spirometry. - rehab efforts. DM Type 1. Glucose well controlled at this time. - insulin sliding scale. - Levemir 10 units HS. - adjust regimen as needed. Rash Involving left flank. Appears to be dermatitis, possibly eczema. - trial of steroid cream. Thrombocytopenia Chronic and stable. - outpt follow-up. Anemia Post-operative, not far from baseline. - monitor. PPx: Per surgery
[2017-11-23] MEDS: Divalproex 250 MG ER Tablet PO SCH (21:28)
[2017-11-23] MEDS: Melatonin 5 MG Tablet PO SCH (21:29)
[2017-11-23] MEDS: Insulin Detemir Inj 1,000 UNIT/10 ML Vial SQ SCH (21:31)
[2017-11-24] MEDS: Insulin NovoLOG Aspart Correctional Sugar Inj SQ SCH ×5 (02:56→20:44)
[2017-11-24] MEDS: Sod Chloride 0.9% Inj 1,000 ML IV.CONT SCH ×2 (02:56→20:44)
[2017-11-24] MEDS: Ketorolac Inj 30 MG/ML (IVP) Vial IV.PUSH SCH (04:20)
[2017-11-24] MEDS: lamoTRIgine 100 MG Tablet PO SCH ×2 (08:55→20:43)
[2017-11-24] MEDS: Varenicline 1 MG Tablet PO SCH ×2 (08:55→20:42)
[2017-11-24] MEDS: Rivaroxaban 10 MG Tablet PO SCH (08:55)
[2017-11-24] MEDS: buPROPion 150 MG 12 HR Tablet PO SCH (08:56)
[2017-11-24] MEDS: Pregabalin 75 MG Capsule PO SCH ×2 (08:56→20:43)
[2017-11-24] MEDS: Gabapentin 300 MG Capsule PO SCH ×3 (08:56→17:42)
[2017-11-24] MEDS: Hydrocortisone 2.5% Cream 30 GM Tube TOPICAL SCH ×2 (08:58→20:43)
[2017-11-24] MEDS: Metoprolol Tartrate 25 MG Tablet PO SCH (09:00)
--- NOTE | 2017-11-24 14:33 | P.PNIM ---
Subjective Interval history: The patient was sitting up in a chair. He said that his leg was hurting him a lot. He said he still has not had a bowel movement. No other acute complaints. Physical Exam Vital signs: Vital Signs 11/23/17 16:00 11/23/17 19:04 11/24/17 00:40 Temperature 97.7 F 97.7 F 97.8 F Pulse Rate 64 62 84 Respiratory Rate 18 18 18 Blood Pressure 111/60 107/57 L 119/58 L Pulse Oximetry 95 97 11/24/17 08:00 11/24/17 12:00 Temperature 98.2 F 97.3 F L Pulse Rate 70 65 Respiratory Rate 18 19 Blood Pressure 107/53 L 113/55 L Pulse Oximetry 95 95 Intake & Output 11/23/17 11/24/17 11/24/17 18:59 06:59 18:59 Intake Total 620 / 620 360 / 360 Output Total 150 / 150 400 / 400 Balance 470 / 470 -40 / -40 Weight 105.1 kg Intake: Oral 620 / 620 360 / 360 Output: Urine Amount (Catheter) 400 / 400 Indwelling Urethral Catheter 400 / 400 Wound Drainage 150 / 150 Right Knee 150 / 150 Other: # Voids 0 # Incontinent Voids 4 Date of Last Bowel Movement 11/20/17 # Bowel Movements 0 0 Narrative: GENERAL: NAD HEENT: NC, AT LUNGS: CTAB HEART: RRR GI: Abdomen soft, nontender EXTREMITIES: Right knee is bandaged. TR-1+ LE extremity edema noted SKIN: Mild rash on left flank NEURO: No gross deficits - Urinary Catheter Management Indwelling Urethral Catheter Cath placed during this visit: yes, but has since been removed by the nurse Reason for continuing: Not indwelling catheter Insertion date: 11/23/17 Insertion time: 06:20 Removal date: 11/23/17 Removal time: 06:40 Results - Labs CBC & Chem 7: 11/23/17 04:55 11/23/17 04:55 Laboratory Results - last 24 hr 11/23/17 11/23/17 11/24/17 17:06 20:25 08:12 POC Glucose 140 H 196 H 169 H 11/24/17 12:06 POC Glucose 176 H Assessment and Plan - Plan OA S/p right knee replacement 11/22. - pain control with a bowel regimen. - wound care, weightbearing and anticoagulation per surgery. - incentive spirometry. - rehab efforts. DM Type 1. Glucose well controlled at this time. - insulin sliding scale. - Levemir 10 units HS. - adjust regimen as needed. Rash Involving left flank. Appears to be dermatitis, possibly eczema. - trial of steroid cream. Thrombocytopenia Chronic and stable. - outpt follow-up. Anemia Post-operative, not far from baseline. - monitor. Constipation S/t pain meds. - Dulcolax PO and lactulose. Add Per-Colace. PPx: Per surgery Medicine will sign off on this stable patient. Please reconsult as needed.
[2017-11-24] MEDS: Divalproex 250 MG ER Tablet PO SCH (20:42)
[2017-11-24] MEDS: Senna/Docusate Sodium 8.6/50 MG Tablet PO SCH (20:42)
[2017-11-24] MEDS: Melatonin 5 MG Tablet PO SCH (20:43)
[2017-11-24] MEDS: Insulin Detemir Inj 1,000 UNIT/10 ML Vial SQ SCH (20:44)
[2017-11-25] MEDS: Sod Chloride 0.9% Inj 1,000 ML IV.CONT SCH ×2 (06:44→10:44)
[2017-11-25] MEDS: Insulin NovoLOG Aspart Correctional Sugar Inj SQ SCH (10:46)
[2017-11-25] MEDS: Rivaroxaban 10 MG Tablet PO SCH (10:50)
[2017-11-25] MEDS: Varenicline 1 MG Tablet PO SCH (10:50)
[2017-11-25] MEDS: Gabapentin 300 MG Capsule PO SCH ×2 (10:50→16:40)
[2017-11-25] MEDS: lamoTRIgine 100 MG Tablet PO SCH (10:50)
[2017-11-25] MEDS: Senna/Docusate Sodium 8.6/50 MG Tablet PO SCH (10:50)
[2017-11-25] MEDS: Pregabalin 75 MG Capsule PO SCH (10:50)
[2017-11-25] MEDS: Hydrocortisone 2.5% Cream 30 GM Tube TOPICAL SCH (10:51)
--- NOTE | 2017-11-25 13:55 | P.PNIM ---
Subjective Interval history: 11-24 The patient was sitting up in a chair. He said that his leg was hurting him a lot. He said he still has not had a bowel movement. No other acute complaints. 11-25 finally had bm today wants to go to SNF TODAY DW RN AND PT AND CM TO GO TO SNF LATER TODAY Physical Exam Vital signs: Vital Signs 11/24/17 16:00 11/24/17 20:00 11/25/17 00:00 Temperature 98.3 F 97.7 F 97.8 F Pulse Rate 89 103 H 82 Respiratory Rate 18 20 20 Blood Pressure 149/65 H 161/75 H 113/55 L Pulse Oximetry 96 97 96 11/25/17 08:00 Temperature 98.4 F Pulse Rate 81 Respiratory Rate 18 Blood Pressure 137/62 Pulse Oximetry 94 L Intake & Output 11/24/17 11/25/17 11/25/17 18:59 06:59 18:59 Intake Total 480 / 480 Balance 480 / 480 Weight 105.1 kg Intake: Oral 480 / 480 Other: # Voids 3 5 Date of Last Bowel Movement 11/20/17 # Bowel Movements 0 Narrative: AWAKE AND ALERT AND O X3 TALKATIVE AND COOPERATIVE GENERAL: NAD HEENT: NC, AT PERRLA EOMI NECK SUPPLE NO JVD LUNGS: CTAB HEART: RRR GI: Abdomen soft, nontender OBESE EXTREMITIES: Right knee is bandaged. TR-1+ LE extremity edema noted RIGHT LEG DRESSED SKIN: Mild rash on left flank NEURO: No gross deficits - Urinary Catheter Management Indwelling Urethral Catheter Cath placed during this visit: yes, but has since been removed by the nurse Reason for continuing: Not indwelling catheter Insertion date: 11/23/17 Insertion time: 06:20 Removal date: 11/23/17 Removal time: 06:40 Results - Labs CBC & Chem 7: 11/23/17 04:55 11/23/17 04:55 Laboratory Results - last 24 hr 11/24/17 11/24/17 11/25/17 16:50 20:04 08:00 POC Glucose 199 H 192 H 169 H - Imaging Knee X-Ray 11/22/17 09:44 CONCLUSION: Good position and alignment on this postoperative study. - Procedures 11/22/2017 PREOPERATIVE DIAGNOSIS: Osteoarthritis, right knee. POSTOPERATIVE DIAGNOSIS: Osteoarthritis, right knee. OPERATIVE PROCEDURE: Total knee replacement arthroplasty, right knee using [employer] components. The components were cemented. Femoral component, 70 mm right, tibial component, 75 mm with I-beam stem, polyethylene 12 mm flat. Patella was not resurfaced. Assessment and Plan - Plan OA S/p right knee replacement 11/22. - pain control with a bowel regimen. - wound care, weightbearing and anticoagulation per surgery. - incentive spirometry. - rehab efforts. DM Type 1. Glucose well controlled at this time. - insulin sliding scale. - Levemir 10 units HS. - adjust regimen as needed. Rash Involving left flank. Appears to be dermatitis, possibly eczema. - trial of steroid cream. Thrombocytopenia Chronic and stable. - outpt follow-up. Anemia Post-operative, not far from baseline. - monitor. Constipation S/t pain meds. - Dulcolax PO and lactulose. Add Per-Colace. HAD BM CAN GO TO SNF TODAY PPx: Per surgery Medicine will sign off on this stable patient. Please reconsult as needed. Code Status: FULL CODE Discussed Condition With: RN AND PT AND CM Discharge Planning: TO SNF TODAY
--- NOTE | 2017-11-25 14:49 | P.DS ---
Date of admission: 11/22/17 09:23 Primary care physician: Remy Caputo MD Attending physician on discharge: Nathan Orellana Anticipated date of discharge: 11/25/17 Brief History from admission: The patient saw me in 07/2017 complaining of ongoing symptoms of pain and instability of the right knee that has been treated in the past including treatment by Dr. You last year with steroid injections. The patient decided he needed to have total knee replacement and sought the undersigned to do the procedure. Patient was evaluated and treated. He was advised about smoking cessation, proper control her diabetes and other aspects and he was given a steroid injection at the time, which did not help him any. The patient has since been scheduled for a total knee replacement arthroplasty. The diagnosis, treatment, prognosis and the potential risks, hazards, complications, and expected results have all been discussed in detail. His last hemoglobin A1c was below 7. That was done about 2 to 3 months ago. He has been medically evaluated by Dr. Caputo, who sees no contraindication to surgery. The patient had to be postponed recently because of an abrasion several weeks ago of the heel and then he came in with a rash that eventually resolved. Now, he is in proper situation to have the surgery. He has stopped smoking and he uses Chantix. DS: Medications - Discharge Medications Prescriptions: hydrocodone-acetaminophen 1 tab PO Q6H PRN #12 tab PRN Reason: Pain lorazepam 0.5 mg PO TID PRN #9 tab PRN Reason: Anxiety rivaroxaban [Xarelto] 10 mg PO DAILY #30 tab DS: Summary Hospital Course: The patient is a 66-year-old male with past medical history of diabetes, CAD and COPD who is presenting to the hospital for a right knee replacement. The patient says that he has had severe arthritis. He uses a 4 wheeled walker at his assisted living facility. He has been taking [place] for pain control over there. He says he has had problems falling secondary to vertigo. He says he has had vertigo for a while but it has gotten worse recently. The patient had total right knee replacement on 11/22/2017. He is currently on a [employer] pump but still having significant pain. He says he has had right hip surgery in the past and it was not as bad. He thinks he may need extra pain medication on top of the [employer]. He says that he has had a bothersome rash on the left side of his body in the flank area. He said it was very itchy. He says he has had a history of scabies and was hoping it was not scabies again. He says that he is prone to constipation. HAD SURGERY HAD ISSUES WITH CONSTIPATION NOW HAS HAD BMS CAN NOW GO TO SNF FOR AGGRESSIVE REHAB ON HIS RIGHT TKR - Time Spent with Patient Total time spent providing and/or coordinating discharge services: Greater than 30 minutes - Quality: VTE Deep Vein Thrombosis/Pulmonary Embolism Present on Admission: No Exam Vital signs: Vital Signs 11/24/17 16:00 11/24/17 20:00 11/25/17 00:00 Temperature 98.3 F 97.7 F 97.8 F Pulse Rate 89 103 H 82 Respiratory Rate 18 20 20 Blood Pressure 149/65 H 161/75 H 113/55 L Pulse Oximetry 96 97 96 11/25/17 08:00 Temperature 98.4 F Pulse Rate 81 Respiratory Rate 18 Blood Pressure 137/62 Pulse Oximetry 94 L Intake & Output 11/24/17 11/25/17 11/25/17 18:59 06:59 18:59 Intake Total 480 / 480 Balance 480 / 480 Weight 105.1 kg Intake: Oral 480 / 480 Other: # Voids 3 5 Date of Last Bowel Movement 11/20/17 # Bowel Movements 0 Narrative: AWAKE AND ALERT AND O X3 TALKATIVE AND COOPERATIVE GENERAL: NAD HEENT: NC, AT PERRLA EOMI NECK SUPPLE NO JVD LUNGS: CTAB HEART: RRR GI: Abdomen soft, nontender OBESE EXTREMITIES: Right knee is bandaged. TR-1+ LE extremity edema noted RIGHT LEG DRESSED SKIN: Mild rash on left flank NEURO: No gross deficits Results Procedures completed during hospitalization: 11/22/2017 PREOPERATIVE DIAGNOSIS: Osteoarthritis, right knee. POSTOPERATIVE DIAGNOSIS: Osteoarthritis, right knee. OPERATIVE PROCEDURE: Total knee replacement arthroplasty, right knee using [employer] components. The components were cemented. Femoral component, 70 mm right, tibial component, 75 mm with I-beam stem, polyethylene 12 mm flat. Patella was not resurfaced. Completed studies during hospitalization: Laboratory Results WBC 5.9 th/mm3 (4.0-11.0) 11/23/17 04:55 RBC 3.39 mil/mm3 (4.50-5.90) L 11/23/17 04:55 Hgb 11.1 gm/dL (13.0-17.0) L 11/23/17 04:55 Hct 32.2 % (39.0-51.0) L 11/23/17 04:55 MCV 95.2 fL (80.0-100.0) 11/23/17 04:55 MCH 32.8 pg (27.0-34.0) 11/23/17 04:55 MCHC 34.5 % (32.0-36.0) 11/23/17 04:55 RDW 13.4 % (11.6-17.2) 11/23/17 04:55 Plt Count 101 th/mm3 (150-450) L D 11/23/17 04:55 MPV 6.7 fL (7.0-11.0) L 11/23/17 04:55 Sodium 139 meq/L (136-145) 11/23/17 04:55 Potassium 4.1 meq/L (3.5-5.1) 11/23/17 04:55 Chloride 104 meq/L (98-107) 11/23/17 04:55 Carbon Dioxide 27.5 meq/L (21.0-32.0) 11/23/17 04:55 Anion Gap 8 meq/L (5-15) 11/23/17 04:55 BUN 15 mg/dL (7-18) 11/23/17 04:55 Creatinine 1.16 mg/dL (0.60-1.30) 11/23/17 04:55 Estimated GFR 63 mL/min (>89) L 11/23/17 04:55 POC Glucose 169 mg/dl (68-110) H 11/25/17 08:00 Random Glucose 115 mg/dL (74-106) H 11/23/17 04:55 Calcium 8.1 mg/dL (8.5-10.1) L 11/23/17 04:55 Blood Type A Positive 11/22/17 06:15 Blood Type Recheck Not needed 11/22/17 06:15 Antibody Screen Negative 11/22/17 06:15 Impressions Knee X-Ray 11/22/17 09:44 CONCLUSION: Good position and alignment on this postoperative study. Labs on day of discharge: Labs from last 24 hours 11/25/17 11/24/17 11/24/17 08:00 20:04 16:50 POC Glucose 169 H 192 H 199 H - Impressions ITS Impressions Knee X-Ray 11/22/17 09:44 CONCLUSION: Good position and alignment on this postoperative study. Discharge Plan - Discharge Disposition Patient Disposition: 03 Discharge to SNF - Discharge Condition Condition: Stable - Discharge Order Discharge Orders: Discharge Order (Routine); Ordered 11/25/17 Ordered By: Vinny Edmond Hospitalist Clear for Discharge (Routine); Ordered 11/25/17 Ordered By: Vinny Edmond - Discharge Details Anticipated Discharge Date: 11/25/17 Discharge Comment: DC TO SNF - Physicians Team Primary Care Provider: Remy Caputo Attending Provider: Nathan Orellana Other Providers: Vinny Edmond DO - Rxs /Orders / Referrals /Forms Prescriptions: New alum-mag hydroxide-simeth [Mag-Al Plus] 200-200-20 mg/5 mL Suspension 30 ml PO Q6H PRN (Reason: Indigestion) RF: 0 bisacodyl [Bisac-Evac] 10 mg Suppository 10 mg MT DAILY PRN (Reason: Severe Consitipation) RF: 0 hydrocortisone 2.5 % Cream 1 applicatio Topical BID RF: 0 lactulose 20 gram/30 mL Solution 15 ml PO DAILY PRN (Reason: Constipation) RF: 0 magnesium hydroxide [Milk of Magnesia] 400 mg/5 mL Suspension 30 ml PO BID PRN (Reason: Mild Constipation) RF: 0 rivaroxaban [Xarelto] 10 mg Tablet 10 mg PO DAILY Qty: 30 RF: 0 sennosides [Senna Lax] 8.6 mg Tablet 17.2 mg PO BID PRN (Reason: Moderate Constipation) RF: 0 sennosides-docusate sodium [Senna Plus] 8.6-50 mg Tablet 1 tab PO BID RF: 0 Continue acetaminophen 325 mg Tablet 325 mg PO Q6H PRN (Reason: Headache) acetaminophen 325 mg Tablet 650 mg PO Q6H PRN (Reason: Pain) albuterol sulfate [Ventolin HFA] 90 mcg/actuation Hfa Aerosol Inhaler 2 puff INHALATION Q6H PRN (Reason: Shortness Of Breath) ammonium lactate [AmLactin] 12 % Lotion 1 applic TOPICAL BID PRN (Reason: Dry Skin) bupropion HCl 150 mg Tablet Extended Release 24 Hr 150 mg PO QAM carvedilol 3.125 mg Tablet 3.125 mg PO BID diphenhydramine HCl [Banophen] 25 mg Tablet 25 mg PO Q6H PRN (Reason: Allergy Symptoms) divalproex 250 mg Tablet Extended Release 24 Hr 750 mg PO HS donepezil 10 mg Tablet 10 mg PO HS enalapril maleate 5 mg Tablet 5 mg PO DAILY gabapentin 300 mg Capsule 300 mg PO TID hydrocodone-acetaminophen 7.5-325 mg Tablet 1 tab PO Q6H PRN (Reason: Pain) Qty: 12 insulin degludec [Tresiba FlexTouch U-200] 200 unit/mL (3 mL) Insulin Pen 90 unit SUB-Q DAILY insulin regular human [Humulin R Regular U-100 Insuln] 100 unit/mL Solution 1 sliding scale dose SUB-Q ACHS lamotrigine 100 mg Tablet 100 mg PO BID lorazepam 0.5 mg Tablet 0.5 mg PO TID PRN (Reason: Anxiety) Qty: 9 meclizine 12.5 mg Tablet 12.5 mg PO TID melatonin 5 mg Tablet 5 mg PO HS memantine 21 mg Capsule,Sprinkle,Er 24hr 21 mg PO DAILY metoprolol tartrate 25 mg Tablet 25 mg PO DAILY nitroglycerin 0.4 mg Tablet, Sublingual 0.4 mg SUBLINGUAL Q5-15M PRN (Reason: Chest Pain) nystatin 100,000 unit/gram Powder 1 applic TOPICAL BID oxybutynin chloride 5 mg Tablet 5 mg PO BID paroxetine HCl 40 mg Tablet 40 mg PO DAILY pregabalin [Lyrica] 75 mg Capsule 75 mg PO BID risperidone 0.5 mg Tablet 0.5 mg PO HS varenicline [Chantix] 1 mg Tablet 1 mg PO BID Discontinued lactulose 10 gram/15 mL Solution 10 gm PO DAILY PRN (Reason: Constipation) Referrals: Remy Caputo MD [Primary Care Provider] - See Instructions Nathan Orellana MD [Physician] - See Instructions (2 WEEKS) - Discharge Instructions Additional Instructions: Make or keep your follow up appointments as directed. Take medications as directed. Keep surgical dressing clean and dry. - Post Discharge Care Plan Care Plan Goals: Discharge Care Plan Goals for Total Knee Replacement You have undergone knee replacement surgery. Your doctor replaced your painful joint with an artificial joint to relieve pain and restore movement. Here are some goals to help you heal well. Directions to Meet your Goals: 1. Activity & Exercises: * Take pain medicine as directed by your doctor. * Sit in chairs with arms. The arms make it easier for you to stand up or sit down. * Dont sit for more than 30 to 45 minutes at one time. * Nap if you are tired, but dont stay in bed all day. * Sleep with a pillow under your ankle, not your knee. Be sure to change the position of your leg during the night. * Wear the support stockings you were given in the hospital as directed by your surgeon. 2. Prevent Falls/Injury: The campos to successful recovery is movement with walking and exercising your knee as directed by your doctor. * Arrange your household to keep the items you need handy. Keep everything else out of the way. * Remove items that may cause you to fall, such as throw rugs and electrical cords. * Use nonslip bath mats, grab bars, an elevated toilet seat, and a shower chair in your bathroom * Sit on a shower stool or chair when you shower to keep from falling. * Until your balance, flexibility, and strength improve, use a cane, crutches, a walker, handrails, or someone to help you. * Keep your hands free by using a backpack, christine pack, apron, or pockets to carry things * Walk up and down stairs with support. Try one step at a time. Use the railing if possible. * Dont drive until your doctor says its OK. * Dont drive while you are taking opioid pain medicine. 3. Precautions: * Prevent infection. Any infection will need to be treated immediately. Call your doctor right away if you think you might have an infection. * Tell your dentist that you have an artificial joint and take antibiotics as prescribed before any dental work. * Tell all your healthcare providers about your artificial joint before any medical procedure. * Maintain a healthy weight. Get help to lose any extra pounds. Added body weight puts stress on the knee. * Your medications may include blood-thinning medicine to prevent blood clots or antibiotics to prevent infection-prevent any falls or cuts 4. Incision Care: * Prevent infection by washing your hands often. If an infection occurs, it will need to be treated right away. * Call your doctor right away if you think you may have an infection. Symptoms include a fever or an incision that leaks white, green, or yellow fluid. * Don't soak your incision in water until your doctor says its OK. This means no hot tubs, bathtubs, or swimming pools. * Follow your doctor's instructions for changing the dressing. * Dont rub the incision, or apply creams or lotions to it. * If you notice any redness or drainage around the bandage site, contact your surgeon's office immediately. 5. Follow-Up: Do Not miss your follow-up appointment. Keep up with all your appointments and yearly check ups When to call your doctor: Call your doctor right away if you have: Fever of 100.4F (38C) or higher, or as directed by your doctor Shaking chills Stiffness, or inability to move the knee Increased swelling in your leg Increased redness, tenderness, or swelling in or around the knee incision Drainage from the knee incision Increased knee pain Call 911: Call 911 right away if you have: Chest pain Shortness of breath Any pain or tenderness in your calf
[2017-11-25] MEDS: buPROPion 150 MG 12 HR Tablet PO SCH (15:35)
[2017-11-25] MEDS: Metoprolol Tartrate 25 MG Tablet PO SCH (15:35)
--- NOTE | 2017-11-25 16:33 | P.PNOP ---
Subjective Interval history: ready to be discharged Physical Exam Vital signs: Vital Signs 11/24/17 20:00 11/25/17 00:00 11/25/17 08:00 Temperature 97.7 F 97.8 F 98.4 F Pulse Rate 103 H 82 81 Respiratory Rate 20 20 18 Blood Pressure 161/75 H 113/55 L 137/62 Pulse Oximetry 97 96 94 L 11/25/17 12:00 Temperature 97.0 F L Pulse Rate 77 Respiratory Rate 18 Blood Pressure 122/65 Pulse Oximetry 97 Intake & Output 11/24/17 11/25/17 11/25/17 18:59 06:59 18:59 Intake Total 480 / 480 Balance 480 / 480 Weight 105.1 kg Intake: Oral 480 / 480 Other: # Voids 3 5 Date of Last Bowel Movement 11/20/17 # Bowel Movements 0 A,A, and O Sitting up, moves knee and foot well Both feet have 2 plus edema and cool and dark toes, but DP and PT by doppler excellent and good cap refill Left knee dressings clean and dry, - Urinary Catheter Management Indwelling Urethral Catheter Cath placed during this visit: yes, but has since been removed by the nurse Reason for continuing: Not indwelling catheter Insertion date: 11/23/17 Insertion time: 06:20 Removal date: 11/23/17 Removal time: 06:40 Results - Labs CBC & Chem 7: 11/23/17 04:55 11/23/17 04:55 Laboratory Results - last 24 hr 11/24/17 11/24/17 11/25/17 16:50 20:04 08:00 POC Glucose 199 H 192 H 169 H - Procedures 11/22/2017 PREOPERATIVE DIAGNOSIS: Osteoarthritis, right knee. POSTOPERATIVE DIAGNOSIS: Osteoarthritis, right knee. OPERATIVE PROCEDURE: Total knee replacement arthroplasty, right knee using [employer] components. The components were cemented. Femoral component, 70 mm right, tibial component, 75 mm with I-beam stem, polyethylene 12 mm flat. Patella was not resurfaced. Assessment and Plan - Assessment and Plan Discharge to SNF. Dr. Donnelly has already written orders andRx for hydrocodone 7.5/325, , clonozepam , for 3 days and xarelto 10 mfor 30 days. to see me monday for follow up
--- NOTE | 2017-11-25 16:51 | MD ---
cc: Nathan Orellana MD, Srinivasa MD DATE OF DISCHARGE: ADMISSION DIAGNOSIS: End-stage osteoarthritis, right knee. ADDITIONAL DIAGNOSES: 1. Insulin-dependent diabetes mellitus, 2. Depression and early dementia. DISCHARGE DIAGNOSES: 1. Insulin-dependent diabetes mellitus, 2. Depression and early dementia. Longstanding problems with his knee treated nonoperatively, but now having instability and, therefore, he was brought to the hospital and taken to the operating room day of admission. At this time, he had total knee replacement performed with spinal anesthesia and adductor block. Postoperative course has been uneventful. Routine postoperative total knee protocol has been followed with ambulation, weightbearing as tolerated, exercises, dressing changes, etc. The patient was placed on Xarelto 10 mg daily for prophylactic anticoagulation. He is being discharged to a custodial facility with instructions for appropriate wound care, continuation of Xarelto and pain medicines as needed and physical therapy. The patient and skilled nursing to make an appointment for the patient to see me on 12/04/2017. Postoperative labs and x-rays were all satisfactory. Patient discharged improved and stable. MD KAPIL Park/ , 04:36 PM , 04:49 PM
== END 2017-11-25 17:48 ==
LOC: HSDC 05:23 → EDSTATUS 07:00 → HSDI 09:23 → N06 12:28
PROVIDERS: ADMIT Orthopaedic Surgery; ATTEND Orthopaedic Surgery

== ENCOUNTER 2017-12-14 08:37 | Observation (INO) ==
--- NOTE | 2017-12-14 09:57 | XR ---
EXAM DATE: 12/14/2017 9:54 AM EDT AGE/SEX: 67 years / Male INDICATIONS: Shortness of breath after fall. CLINICAL DATA: This is the patient's initial encounter. Patient reports that signs and symptoms have been present for 1 day and indicates a pain score of 0/10. MEDICAL/SURGICAL HISTORY: . Hypertension. Myocardial infarction. Chronic obstructive pulmonary disease. CHF, CAD, Asthma, Diabetic. . Right shoulder. COMPARISON: [facility] – [place], CHEST PA & LAT, 09/25/2017. . FINDINGS: A single AP view of the chest demonstrates the lungs to be symmetrically aerated without evidence of mass, infiltrate or effusion. No pneumothorax. The cardiomediastinal contours are unremarkable. Osse ous structures are intact. Cervical spinal fusion plate and right humeral head anchoring device are n oted. CONCLUSION: No acute disease.. Electronically signed by: Andrea Lofton MD 12/14/2017 9:56 AM EDT
--- NOTE | 2017-12-14 10:15 | ED ---
HPI General Chief Complaint: Extremity Injury, Upper Stated Complaint: Right shoulder pain Time Seen by Provider: 12/14/17 09:28 Source: patient and EMS Mode of arrival: EMS Limitations: no limitations History of Present Illness HPI narrative: 67-year-old male states he was on the toilet and must have fallen asleep and next thing he knows he was falling and hit his head, right shoulder, and right knee. He states a couple weeks ago he had a right knee replacement with Dr. Orellana. He states he does not take any blood thinner medications. He denies any chest pain or shortness of breath or other concurrent complaints. MD complaint: fall Onset (ago): hour(s) Loss of Consciousness: no Location: head Location - Extremities: Right: shoulder and knee Context: fall Related Data Home Medications Medication Instructions Recorded Confirmed acetaminophen 325 mg PO Q6H PRN 11/17/17 12/14/17 acetaminophen 650 mg PO Q6H PRN 11/17/17 12/14/17 albuterol sulfate [Ventolin HFA] 2 puff INHALATION Q6H PRN 11/17/17 12/14/17 ammonium lactate [AmLactin] 1 applic TOPICAL BID PRN 11/17/17 12/14/17 bupropion HCl 150 mg PO QAM 11/17/17 12/14/17 carvedilol 3.125 mg PO BID 11/17/17 12/14/17 diphenhydramine HCl [Banophen] 25 mg PO Q6H PRN 11/17/17 12/14/17 divalproex 750 mg PO HS 11/17/17 12/14/17 donepezil 10 mg PO HS 11/17/17 12/14/17 enalapril maleate 5 mg PO DAILY 11/17/17 12/14/17 gabapentin 300 mg PO TID 11/17/17 12/14/17 insulin degludec [Tresiba 90 unit SUB-Q DAILY 11/17/17 12/14/17 FlexTouch U-200] lamotrigine 100 mg PO BID 11/17/17 12/14/17 meclizine 12.5 mg PO TID 11/17/17 12/14/17 memantine 21 mg PO DAILY 11/17/17 12/14/17 metoprolol tartrate 25 mg PO DAILY 11/17/17 12/14/17 nitroglycerin 0.4 mg SUBLINGUAL Q5-15M PRN 11/17/17 12/14/17 oxybutynin chloride 5 mg PO BID 11/17/17 12/14/17 paroxetine HCl 40 mg PO DAILY 11/17/17 12/14/17 pregabalin [Lyrica] 75 mg PO BID 11/17/17 12/14/17 risperidone 0.5 mg PO HS 11/17/17 12/14/17 alum-mag hydroxide-simeth [Maalox 30 ml PO Q6H PRN 12/14/17 12/14/17 Maximum Strength] hydrocortisone 1 applic TOPICAL BID 12/14/17 12/14/17 insulin regular human [Novolin R 1 sliding scale dose SUB-Q ACHS 12/14/17 Regular U-100 Insuln] melatonin 6 mg PO HS 12/14/17 12/14/17 sodium phosphates [Fleet Enema] 118 ml AL DIRECTED PRN 12/14/17 12/14/17 Previous Rx's Medication Instructions Recorded bisacodyl [Bisac-Evac] 10 mg AL DAILY PRN ea 11/25/17 hydrocodone-acetaminophen 1 tab PO Q6H PRN #12 tab 11/25/17 lorazepam 0.5 mg PO TID PRN #9 tab 11/25/17 magnesium hydroxide [Milk of 30 ml PO BID PRN ml 11/25/17 Magnesia] sennosides [Senna Lax] 17.2 mg PO BID PRN tab 11/25/17 sennosides-docusate sodium [Senna 1 tab PO BID tab 11/25/17 Plus] Allergies Allergy/AdvReac Type Severity Reaction Status Date / Time No Known Allergies Allergy Verified 12/14/17 09:01 Review of Systems ROS: all other systems reviewed are negative [facility] Medical History Medical History Acute pulmonary edema (Acute) Anxiety (Acute) Arthritis (Acute) Asthma (Acute) CAD (coronary artery disease) (Acute) CHF (congestive heart failure) (Acute) COPD (chronic obstructive pulmonary disease) (Acute) Cirrhosis of liver (Acute) Dementia (Acute) Depression (Acute) Diabetes (Acute) Diabetic nephropathy (Acute) Enlarged prostate (Acute) Frequent headaches (Acute) Fusion of spine, cervical region (Acute) GERD (gastroesophageal reflux disease) (Acute) H/O ETOH abuse (Acute) H/O acute myocardial infarction (Acute) H/O bipolar disorder (Acute) H/O chest pain (Acute) H/O gastric ulcer (Acute) H/O methicillin resistant Staphylococcus aureus (Acute) H/O scabies (Acute) Hemochromatosis (Acute) Hiatal hernia (Acute) History of abdominal hernia (Acute) Hypertension (Acute) Renal disease (Acute) Shortness of breath on exertion (Acute) Skin cancer (Acute) Sleep apnea (Acute) Smoker (Acute) Vertigo (Acute) Wears glasses (Acute) Wears partial dentures (Acute) Surgical History Surgical History H/O cardiac catheterization (Acute) H/O inguinal hernia repair (Acute) H/O rotator cuff surgery (Acute) History of cholecystectomy (Acute) History of colostomy reversal (Acute) History of partial colectomy (Acute) History of total right hip replacement (Acute) Social History Social History Substance History: No History of Abuse Second Hand Smoke Exposure: No Smoking Status: Former smoker Tobacco Type: Cigarettes Cigarettes Per Day: 5 How Often Do You Have a Drink Containing Alcohol: Never Recent Travel in [facility] within the Last 8 Weeks: No Recent Out of Country Travel within the Last 8 Weeks: No Immunization History Tetanus Immunization: Unsure Hx Influenza Vaccine This Season: Yes Exam Narrative Exam Narrative: General: 67 y/o patient in no apparent distress Skin: trauma noted to right shoulder with swelling, postop incision to right knee appears well healing Eyes: Pupils equal, eomi ENT: no septal hematoma NECK: no pain with palpation, nexus criteria negative Cardiovascular: Regular rate and rhythm Respiratory: Normal respiratory effort noted, clear to auscultation bilaterally Abdomen: soft, nontender, nondistended Back: No step-offs, midline spine nontender with palpation Extremities: Pain with palpation of right knee and shoulder, no lacerations over , neurovascularly intact, no pain with palpation of other joints Neuro: awake, alert, sensation and motor grossly intact Course Reevaluation(s) Reevaluation #1: Patient with new hyponatremia of 126 and unknown cause of fall. Will admit to the hospital for observation. Consultations Consultation #1: dr wilhelm agrees to admit Initial Documented Vital Signs Temperature 97.8 F 12/14/17 08:54 Pulse Rate 63 12/14/17 08:54 Respiratory Rate 14 12/14/17 08:54 Blood Pressure 158/73 H 12/14/17 08:54 Pulse Oximetry 99 12/14/17 08:54 Last Documented Vital Signs Temperature 97.8 F 12/14/17 09:00 Pulse Rate 66 12/14/17 11:37 Respiratory Rate 18 12/14/17 11:37 Blood Pressure 179/76 H 12/14/17 11:37 Pulse Oximetry 100 12/14/17 11:37 Medical Decision Making MDM Narrative Medical decision making narrative: Will check blood work, imaging and reevaluate Differential Diagnosis Differential Diagnosis: Fracture, sprain, strain, possible syncope Lab Data Lab results reviewed: Yes I reviewed the patient's lab results. Result diagrams: 12/14/17 10:35 12/14/17 10:35 Lab Results 12/14/17 12/14/17 Range/Units 10:35 10:35 WBC 6.8 (4.0-11.0) th/mm3 RBC 3.87 L (4.50-5.90) mil/mm3 Hgb 13.0 (13.0-17.0) gm/dL Hct 37.9 L (39.0-51.0) % MCV 97.9 (80.0-100.0) fL MCH 33.5 (27.0-34.0) pg MCHC 34.2 (32.0-36.0) % RDW 14.5 (11.6-17.2) % Plt Count 157 D (150-450) th/mm3 MPV 6.2 L (7.0-11.0) fL Neut % (Auto) 70.7 H (16.0-70.0) % Lymph % (Auto) 14.5 (9.0-44.0) % [place] % (Auto) 11.7 H (0.0-8.0) % Eos % (Auto) 2.7 (0.0-4.0) % Baso % (Auto) 0.4 (0.0-2.0) % Neut # (Auto) 4.8 (1.8-7.7) th/mm3 Lymph # (Auto) 1.0 (1.0-4.8) th/mm3 [place] # (Auto) 0.8 (0.0-0.9) th/mm3 Eos # (Auto) 0.2 (0.0-0.4) th/mm3 Baso # (Auto) 0.0 (0.0-0.2) th/mm3 WBC Differential . Differential Comment Auto diff final Sodium 126 L (136-145) meq/L Potassium 4.9 (3.5-5.1) meq/L Chloride 95 L (98-107) meq/L Carbon Dioxide 24.0 (21.0-32.0) meq/L Anion Gap 7 (5-15) meq/L BUN 14 (7-18) mg/dL Creatinine 0.88 (0.60-1.30) mg/dL Estimated GFR 86 L (>89) mL/min Random Glucose 77 (74-106) mg/dL Calcium 8.6 (8.5-10.1) mg/dL Magnesium 2.3 (1.5-2.5) mg/dL Total Creatine Kinase 90 (39-308) U/L Troponin I Less than 0.02 L (0.02-0.05) ng/mL Imaging Data Attestation: I personally reviewed and interpreted this imaging study as follows : Radiologist's impression: Chest X-Ray 12/14/17 09:28 CONCLUSION: No acute disease.. Knee X-Ray 12/14/17 09:28 CONCLUSION: Intact right knee/arthroplasty. Nonspecific joint effusion and prepatellar soft tissue swelling. Shoulder X-Ray 12/14/17 09:28 CONCLUSION: 1. No fracture or subluxation of the right shoulder. 2. Previous rotator cuff repair. Degenerative changes as above. Head CT 12/14/17 09:57 CONCLUSION: 1. No bleed or other acute intracranial abnormality. 2. Mild to moderate ventriculomegaly. Normal pressure hydrocephalus would be in the differential. 3. Chronic white matter changes. 4. Mild ethmoid sinus disease. . Humerus X-Ray 12/14/17 12:15 CONCLUSION: Intact right humerus. Discharge Plan Discharge Disposition Patient Disposition: 30 Still Patient Discharge Condition Condition: Stable Discharge Details Diagnosis: Acute hyponatremia, Fall Physicians Team ED Provider: Niurka Davidson Primary Care Provider: Remy Caputo Attending Provider: Vinny Wilhelm Status ED Status: Admitted Observation Patient
[2017-12-14] MEDS ORDERED: Morphine Inj 4 MG/ML Vial IV.PUSH ONE (10:45)
--- NOTE | 2017-12-14 11:04 | XR ---
EXAM DATE: 12/14/2017 10:58 AM EDT AGE/SEX: 67 years / Male INDICATIONS: Right knee pain after fall. CLINICAL DATA: This is the patient's initial encounter. Patient reports that signs and symptoms have been present for 1 day and indicates a pain score of 7/10. MEDICAL/SURGICAL HISTORY: . Hypertension. Myocardial infarction. Chronic obstructive pulmonary disease. CHF, CAD, Asthma, Diabetic. Total knee replacement, right. COMPARISON: [facility] – [place], KNEE LIMITED RIGHT 05/09V, 11/22/2017. . FINDINGS: Changes of a right total knee arthroplasty again noted. No fracture or subluxation. No evidence of good rdware failure or loosening. A moderate size joint effusion is present. There also appears to be some prepatellar soft tissue swel ling. CONCLUSION: Intact right knee/arthroplasty. Nonspecific joint effusion and prepatellar soft tissue swelling. Electronically signed by: Haim Moctezuma MD 12/14/2017 11:03 AM EDT
--- NOTE | 2017-12-14 11:05 | XR ---
EXAM DATE: 12/14/2017 11:01 AM EDT AGE/SEX: 67 years / Male INDICATIONS: Right shoulder pain after fall. CLINICAL DATA: This is the patient's initial encounter. Patient reports that signs and symptoms have been present for 1 day and indicates a pain score of 0/10. MEDICAL/SURGICAL HISTORY: . Hypertension. Myocardial infarction. Chronic obstructive pulmonary disease. CHF, CAD, Asthma, Diabetic. . Right shoulder. COMPARISON: No prior exams available for comparison. FINDINGS: No fracture or subluxation demonstrated of the right shoulder. Radiographic appearance of the soft ti ssues within normal limits. There is a suture anchor of the greater tuberosity consistent with previous supraspinatus cuff repair . Moderate acromioclavicular and mild to moderate glenohumeral joint osteoarthritis present. CONCLUSION: 1. No fracture or subluxation of the right shoulder. 2. Previous rotator cuff repair. Degenerative changes as above. Electronically signed by: Haim Moctezuma MD 12/14/2017 11:04 AM EDT
[2017-12-14 11:22] LABS: Baso % (Auto) 0.4 % (0.0-2.0); Eos # (Auto) 0.2 th/mm3 (0.0-0.4); Eos % (Auto) 2.7 % (0.0-4.0); Hematocrit 37.9 % (39.0-51.0); Lymph % (Auto) 14.5 % (9.0-44.0); Mean Corpuscular HGB Conc 34.2 % (32.0-36.0); Mean Corpuscular Hemoglobin 33.5 pg (27.0-34.0); Mean Corpuscular Volume 97.9 fL (80.0-100.0); Mean Platelet Volume 6.2 fL (7.0-11.0); Mono # (Auto) 0.8 th/mm3 (0.0-0.9); Mono % (Auto) 11.7 % (0.0-8.0); Neut # (Auto) 4.8 th/mm3 (1.8-7.7); Neut % (Auto) 70.7 % (16.0-70.0); Platelet Count 157 th/mm3 (150-450); Red Blood Count 3.87 mil/mm3 (4.50-5.90); Red Cell Distribution Width 14.5 % (11.6-17.2); White Blood Count 6.8 th/mm3 (4.0-11.0)
[2017-12-14 11:34] LABS: Anion Gap 7 meq/L (5-15); Blood Urea Nitrogen 14 mg/dL (7-18); Calcium 8.6 mg/dL (8.5-10.1); Chloride 95 meq/L (98-107); Glomerular Filtration Rate 86 mL/min (>89); Glucose,Random 77 mg/dL (74-106); Magnesium 2.3 mg/dL (1.5-2.5); Potassium 4.9 meq/L (3.5-5.1); Sodium 126 meq/L (136-145)
--- NOTE | 2017-12-14 11:40 | CT ---
EXAM DATE: 12/14/2017 11:31 AM EDT AGE/SEX: 67 years / Male INDICATIONS: Fell from a sitting position CLINICAL DATA: This is the patient's initial encounter. Patient reports that signs and symptoms have been present for 1 day and indicates a pain score of 5/10. MEDICAL/SURGICAL HISTORY: Cardiovascular disease. Chronic obstructive pulmonary disease. Diabetes . Asthma Hypertension . Orthopedic RADIATION DOSE: 37.70 CTDI (mGy) COMPARISON: [facility], CT BRAIN W/O CONTRAST, 10/27/2012. Report only, [facility] [place]AST, 05/13. . TECHNIQUE: CT of the head without contrast. Using automated exposure control and adjustment of the mA and/or kV according to patient size, radiation dose was kept as low as reasonably achievable to ob tain optimal diagnostic quality images. DICOM format image data is available electronically for revi ew and comparison. FINDINGS: Cerebrum: Mild to moderate diffuse ventriculomegaly. No evidence of midline shift, mass lesion, hem orrhage or acute infarction. No extraaxial fluid collections are seen. There is chronic low-attenuat ion in the periventricular white matter Posterior Fossa: The cerebellum and brainstem are intact. The 4th ventricle is midline. The cerebe llopontine angle is unremarkable. Extracranial: Mild mucoperiosteal thickening of the visualized ethmoid air cells. Skull: The calvaria is intact. No evidence of skull fracture. CONCLUSION: 1. No bleed or other acute intracranial abnormality. 2. Mild to moderate ventriculomegaly. Normal pressure hydrocephalus would be in the differential. 3. Chronic white matter changes. 4. Mild ethmoid sinus disease. . Electronically signed by: Haim Moctezuma MD 12/14/2017 11:38 AM EDT
[2017-12-14 11:57] LABS: Creatine Kinase 90 U/L (39-308)
--- NOTE | 2017-12-14 13:22 | XR ---
EXAM DATE: 12/14/2017 1:05 PM EDT AGE/SEX: 67 years / Male INDICATIONS: Right upper extremity pain; fall. CLINICAL DATA: This is the patient's initial encounter. Patient reports that signs and symptoms have been present for 1 day and indicates a pain score of 6/10. MEDICAL/SURGICAL HISTORY: None. . Right shoulder surgery. [place] [facility] [place]. . FINDINGS: Bony structures are intact and in normal alignment. Osseous density is normal. Soft tissues are unre markable. No radiopaque foreign bodies seen. CONCLUSION: Intact right humerus. Electronically signed by: Haim Moctezuma MD 12/14/2017 1:21 PM EDT
[2017-12-14] MEDS ORDERED: Bisacodyl 10 MG Supp RECTAL PRN (13:25)
[2017-12-14] MEDS ORDERED: Acetaminophen 325 MG Tablet PO PRN (13:25)
[2017-12-14] MEDS ORDERED: Lactic Acid (Ammonium Lactate) 12% Lotion 225 GM Bottle TOPICAL PRN (13:30)
[2017-12-14] MEDS ORDERED: Aluminum/Magnesium/Simethacone Susp 30 ML UDC PO PRN (13:30)
[2017-12-14] MEDS ORDERED: Nitroglycerin SL (Override) 0.4 MG Tab SL PRN (13:30)
[2017-12-14] MEDS ORDERED: Dextrose 50% in Water 50 ML Vial IV.PUSH PRN (13:45)
--- NOTE | 2017-12-14 13:54 | P.HPIM ---
History of Present Illness Service: [facility] Primary Care Physician: Remy Caputo MD Chief Complaint: Fall from toilet to the floor History of Present Illness: Patient is a 67-year-old male who states he was on the toilet at his nursing home facility and most of falling asleep and next thing he knows he was falling and hit his head, right shoulder, and right knee. He states that a couple weeks ago he had the right knee replacement by Dr. Orellana. Patient does not recall taking any blood thinners at the SNF. Denies any chest pain, denies any shortness of breath denies any issues prior to falling off the toilet. He denies any loss of consciousness. Patient was found to have hyponatremia here on lab work. Past medical history is significant for anxiety and depression, dementia, neuropathy, diabetes mellitus insulin requiring, history of dizziness, hypertension, acute pain from the right knee and some anxiety and insomnia. Patient will be observed in the observation unit will get echoes and carotids and trend troponins give him some sodium chloride tablets to replace his hyponatremia Patient will be monitored. Review of Systems All other systems reviewed negative except as stated in HPI PMFSH - History History Provided By: Development Administrator / EMT - Medical History Medical History: Medical History (Last Reviewed 12/14/17 @ 10:14 by Niurka Davidson MD) Acute pulmonary edema Anxiety Arthritis Asthma CAD (coronary artery disease) CHF (congestive heart failure) COPD (chronic obstructive pulmonary disease) Cirrhosis of liver Dementia Depression Diabetes Diabetic nephropathy Enlarged prostate Frequent headaches Fusion of spine, cervical region GERD (gastroesophageal reflux disease) H/O ETOH abuse H/O acute myocardial infarction H/O bipolar disorder H/O chest pain H/O gastric ulcer H/O methicillin resistant Staphylococcus aureus H/O scabies Hemochromatosis Hiatal hernia History of abdominal hernia Hypertension Renal disease Shortness of breath on exertion Skin cancer Sleep apnea Smoker Vertigo Wears glasses Wears partial dentures - Surgical History Surgical History: Surgical History (Last Reviewed 12/14/17 @ 10:14 by Niurka Davidson MD) H/O cardiac catheterization H/O inguinal hernia repair H/O rotator cuff surgery History of cholecystectomy History of colostomy reversal History of partial colectomy History of total right hip replacement - Family History Family History: Family History (Last Updated 12/14/17 @ 13:38 by Vinny Edmond DO) Other Family history of hypertension - Tobacco History Second Hand Smoke Exposure: No Smoking Status: Former smoker Tobacco Type: Cigarettes Cigarettes Per Day: 5 - Alcohol History How Often Do You Have a Drink Containing Alcohol: Never - Substance Use History Substance History: No History of Abuse - Travel History Recent Travel in the [place] Within the Last 8 Weeks: No Recent Travel Out of the Country Within the Last 8 Weeks: No - Immunization History Tetanus Immunization: Unsure Hx Influenza Vaccine This Season: Yes Medications and Allergies Active Medications: Active Medications Acetaminophen (Tylenol) 650 mg PO Q4H PRN PRN Reason: Temp > 100.4 Hydrocodone Bitart/Acetaminophen ([place] 7.5/325) 1 tab PO Q6H PRN PRN Reason: Pain Al Hydroxide/Mg Hydroxide (Milk Of Magnesia Liq) 30 ml PO Q12H PRN PRN Reason: Mild Constipation Bisacodyl (Dulcolax Supp) 10 mg RECTAL DAILY PRN PRN Reason: SEVERE CONSITIPATION Bupropion HCl (Wellbutrin Xl) 150 mg PO QAM [facility] Carvedilol (Coreg) 3.125 mg PO BID [facility] Divalproex Sodium (Depakote Er) 750 mg PO HS [facility] Enalapril Maleate (Vasotec) 5 mg PO DAILY [facility] Enoxaparin Sodium (Lovenox Inj) 40 mg SQ Q24H [facility] Gabapentin (Neurontin) 300 mg PO TID [facility] Hydrocortisone Acetate (Hydrocortisone 1% Cream) 1 applicatio TOPICAL BID [facility] Lactic Acid (Lac-Hydrin 12% Lotion) 1 applicatio TOPICAL BID PRN PRN Reason: Dry Skin Lactulose (Lactulose Liq) 30 ml PO DAILY PRN PRN Reason: SEVERE CONSITIPATION Lamotrigine (Lamictal) 100 mg PO BID [facility] Lorazepam (Ativan) 0.5 mg PO TID PRN PRN Reason: Anxiety Metoprolol Tartrate (Lopressor) 25 mg PO DAILY [facility] Nitroglycerin (Nitrostat Sl (Override)) 0.4 mg SL Q5-15M PRN PRN Reason: Chest Pain Non-Formulary Medication (Alum-Mag Hydroxide-Simeth [Maalox Maximum Strength]) 30 ml PO Q6H PRN PRN Reason: Indigestion Non-Formulary Medication (Diphenhydramine Hcl [Banophen]) 25 mg PO Q6H PRN PRN Reason: Allergy Symptoms Non-Formulary Medication (Donepezil [Donepezil]) 10 mg PO HS [facility] Non-Formulary Medication (Insulin Degludec [Tresiba Flextouch U-200]) 90 unit SQ DAILY [facility] Non-Formulary Medication (Meclizine [Meclizine]) 12.5 mg PO TID [facility] Non-Formulary Medication (Melatonin [Melatonin]) 6 mg PO HS [facility] Non-Formulary Medication (Memantine [Memantine]) 21 mg PO DAILY [facility] Non-Formulary Medication (Paroxetine Hcl [Paroxetine Hcl]) 40 mg PO DAILY [facility] Non-Formulary Medication (Albuterol Hfa Inh) 2 puff INHALATION Q6H PRN PRN Reason: Shortness Of Breath Ondansetron HCl (Zofran Inj) 4 mg IV.PUSH Q6H PRN PRN Reason: NAUSEA OR VOMITING Oxybutynin Chloride (Ditropan) 5 mg PO BID [facility] Pregabalin (Lyrica) 75 mg PO BID [facility] Risperidone (Risperdal) 0.5 mg PO HS [facility] Senna/Docusate Sodium (Jesenia-Colace) 1 tab PO BID [facility] Sennosides (Senokot) 17.2 mg PO Q12H PRN PRN Reason: Moderate Constipation Sodium Chloride (Ns Flush) 2 ml IV.FLUSH UNSCH PRN PRN Reason: FLUSH AFTER USING IV ACCESS Sodium Chloride (Sodium Chloride) 1 gm PO TID [facility] Allergies Allergy/AdvReac Type Severity Reaction Status Date / Time No Known Allergies Allergy Verified 12/14/17 09:01 Home Medications Medication Instructions Recorded Confirmed Type acetaminophen 325 mg PO Q6H PRN 11/17/17 12/14/17 History acetaminophen 650 mg PO Q6H PRN 11/17/17 12/14/17 History albuterol sulfate [Ventolin HFA] 2 puff INHALATION Q6H PRN 11/17/17 12/14/17 History ammonium lactate [AmLactin] 1 applic TOPICAL BID PRN 11/17/17 12/14/17 History bupropion HCl 150 mg PO QAM 11/17/17 12/14/17 History carvedilol 3.125 mg PO BID 11/17/17 12/14/17 History diphenhydramine HCl [Banophen] 25 mg PO Q6H PRN 11/17/17 12/14/17 History divalproex 750 mg PO HS 11/17/17 12/14/17 History donepezil 10 mg PO HS 11/17/17 12/14/17 History enalapril maleate 5 mg PO DAILY 11/17/17 12/14/17 History gabapentin 300 mg PO TID 11/17/17 12/14/17 History insulin degludec [Tresiba 90 unit SUB-Q DAILY 11/17/17 12/14/17 History FlexTouch U-200] lamotrigine 100 mg PO BID 11/17/17 12/14/17 History meclizine 12.5 mg PO TID 11/17/17 12/14/17 History memantine 21 mg PO DAILY 11/17/17 12/14/17 History metoprolol tartrate 25 mg PO DAILY 11/17/17 12/14/17 History nitroglycerin 0.4 mg SUBLINGUAL Q5-15M PRN 11/17/17 12/14/17 History oxybutynin chloride 5 mg PO BID 11/17/17 12/14/17 History paroxetine HCl 40 mg PO DAILY 11/17/17 12/14/17 History pregabalin [Lyrica] 75 mg PO BID 11/17/17 12/14/17 History risperidone 0.5 mg PO HS 11/17/17 12/14/17 History alum-mag hydroxide-simeth [Maalox 30 ml PO Q6H PRN 12/14/17 12/14/17 History Maximum Strength] hydrocortisone 1 applic TOPICAL BID 12/14/17 12/14/17 History insulin regular human [Novolin R 1 sliding scale dose SUB-Q ACHS 12/14/17 History Regular U-100 Insuln] melatonin 6 mg PO HS 12/14/17 12/14/17 History sodium phosphates [Fleet Enema] 118 ml AR DIRECTED PRN 12/14/17 12/14/17 History Exam Vital signs: Vital Signs 12/14/17 08:54 12/14/17 09:00 12/14/17 10:12 Temperature 97.8 F 97.8 F Pulse Rate 63 63 66 Respiratory Rate 14 14 18 Blood Pressure 158/73 H 158/73 H 160/72 H Pulse Oximetry 99 99 99 12/14/17 11:37 Temperature Pulse Rate 66 Respiratory Rate 18 Blood Pressure 179/76 H Pulse Oximetry 100 Intake & Output 12/13/17 12/14/17 12/14/17 18:59 06:59 18:59 Weight 77.111 kg Narrative: GENERAL: Awake alert and oriented 3 talkative and cooperative in mild acute distress SKIN: Warm and dry. HEAD: Atraumatic. Normocephalic. EYES: Pupils equal and round. No scleral icterus. No injection or drainage. EOMI ENT: No nasal bleeding or discharge. Mucous membranes pink and moist. Tongue is midline NECK: Trachea midline. No JVD. Supple CARDIOVASCULAR: Regular rate and rhythm. S1-S2 no S3 or S4 RESPIRATORY: No accessory muscle use. Clear to auscultation. Breath sounds equal bilaterally. GASTROINTESTINAL: Abdomen soft, non-tender, nondistended. Hepatic and splenic margins not palpable. MUSCULOSKELETAL: Extremities without clubbing, cyanosis, or edema. No obvious deformities. NEUROLOGICAL: Awake and alert. No obvious cranial nerve deficits. Motor grossly within normal limits. Five out of 5 muscle strength in the arms and legs. Normal speech. Right knee is dressed with Steri-Strips over the right knee PSYCHIATRIC: Appropriate mood and affect; insight and judgment normal. Does have some dementia Results - Labs CBC & Chem 7: 12/14/17 10:35 12/14/17 10:35 Labs: Short CBC 12/14/17 Range/Units 10:35 WBC 6.8 (4.0-11.0) th/mm3 Hgb 13.0 (13.0-17.0) gm/dL Hct 37.9 L (39.0-51.0) % Plt Count 157 D (150-450) th/mm3 BMP 12/14/17 10:35 Sodium 126 L Potassium 4.9 Chloride 95 L Carbon Dioxide 24.0 BUN 14 Creatinine 0.88 Calcium 8.6 Cardiac Enzymes 12/14/17 Range/Units 10:35 Total Creatine Kinase 90 (39-308) U/L Troponin I Less than 0.02 L (0.02-0.05) ng/mL - Imaging Impressions Chest X-Ray 12/14/17 09:28 CONCLUSION: No acute disease.. Knee X-Ray 12/14/17 09:28 CONCLUSION: Intact right knee/arthroplasty. Nonspecific joint effusion and prepatellar soft tissue swelling. Shoulder X-Ray 12/14/17 09:28 CONCLUSION: 1. No fracture or subluxation of the right shoulder. 2. Previous rotator cuff repair. Degenerative changes as above. Head CT 12/14/17 09:57 CONCLUSION: 1. No bleed or other acute intracranial abnormality. 2. Mild to moderate ventriculomegaly. Normal pressure hydrocephalus would be in the differential. 3. Chronic white matter changes. 4. Mild ethmoid sinus disease. . Humerus X-Ray 12/14/17 12:15 CONCLUSION: Intact right humerus. Caprini VTE Risk Assessment Caprini VTE Risk Assessment: Moderate/High Risk (score >= 2) Caprini Risk Assessment Model: Point Value = 1 Point Value = 2 Point Value = 3 Point Value = 5 Age 41-60 Minor surgery BMI > 25 kg/m2 Swollen legs Varicose veins or History of unexplained or recurrent spontaneous Oral contraceptives or hormone replacement Sepsis (< 1 month) Serious lung disease, including pneumonia (< 1 month) Abnormal pulmonary function Acute myocardial infarction Congestive heart failure (< 1 month) History of inflammatory bowel disease Medical patient at bed rest Age 61-74 Arthroscopic surgery Major open surgery (> 45 min) Laparoscopic surgery (> 45 min) Malignancy Confined to bed (> 72 hours) Immobilizing plaster cast Central venous access Age >= 75 History of VTE Family history of VTE Factor V Leiden Prothrombin [id number] Lupus anticoagulant Anticardiolipin antibodies Elevated serum homocysteine Heparin-induced thrombocytopenia Other congenital or acquired thrombophilia Stroke (< 1 month) Elective arthroplasty Hip, pelvis, or leg fracture Acute spinal cord injury (< 1 month) Prophylaxis Regimen: Total Risk Factor Score Risk Level Prophylaxis Regimen 0-1 Low Early ambulation 2 Moderate Order ONE of the following: *Sequential Compression Device (SCD) *Heparin 5000 units SQ BID 3-4 Higher Order ONE of the following medications: *Heparin 5000 units SQ TID *Enoxaparin/Lovenox 40 mg SQ daily (WT < 150 kg, CrCl > 30 mL/min) *Enoxaparin/Lovenox 30 mg SQ daily (WT < 150 kg, CrCl > 10-29 mL/min) *Enoxaparin/Lovenox 30 mg SQ BID (WT < 150 kg, CrCl > 30 mL/min) AND/OR *Sequential Compression Device (SCD) 5 or more Highest Order ONE of the following medications: *Heparin 5000 units SQ TID (Preferred with Epidurals) *Enoxaparin/Lovenox 40 mg SQ daily (WT < 150 kg, CrCl > 30 mL/min) *Enoxaparin/Lovenox 30 mg SQ daily (WT < 150 kg, CrCl > 10-29 mL/min) *Enoxaparin/Lovenox 30 mg SQ BID (WT < 150 kg, CrCl > 30 mL/min) AND *Sequential Compression Device (SCD) Assessment and Plan - Plan Status post fall from toilet after falling asleep and then trying to get up Possible Near syncope/ syncope -We will continue with troponins and cardiac enzymes every 62 more -Check a urinalysis with C/S -We will get echocardiogram -We will get carotids -Continue on Lovenox Hyponatremia will continue on sodium chloride tablets and monitor with a.m. labs Recent right total knee arthroplasty will consult physical therapy and occupational therapy since patient has been seeing them at SNF Depression and anxiety resume home medications Diabetes mellitus continue on insulin with sliding scale coverage before meals and at bedtime and home insulin dose with a diabetic diet Chronic neuropathy continue on his gabapentin and Lyrica Benadryl as needed for itching Continue on his anxiety and depression meds as well as his dementia medications Continue on his divalproex and lamotrigine and bupropion. Meds for chronic constipation Hypertension continue on his Coreg Meclizine as needed for dizziness Benadryl as needed for allergies/itchy DVT prophylaxis with Lovenox GI prophylaxis as needed Code Status: Full code Discussed Condition With: RN and patient and emergency room physician Discharge Planning: Pending improvement and clearance by physical therapy and Occupational Therapy to return to SNF
[2017-12-14] MEDS: buPROPion 150 MG XL 24 HR Tablet PO SCH (15:38)
[2017-12-14] MEDS: Sodium Chloride 1 GM Tablet PO SCH ×2 (15:39→18:15)
[2017-12-14] MEDS ORDERED: Enoxaparin Inj 40 MG/0.4 ML Syringe SQ SCH (16:00)
[2017-12-14] MEDS: Gabapentin 300 MG Capsule PO SCH ×2 (16:05→18:12)
[2017-12-14 18:00] LABS: Activated Partial Thrombo Time 30.9 sec (24.3-30.1); INR 1.2 Ratio; Prothrombin Time 12.2 sec (9.8-11.6)
[2017-12-14 18:06] LABS: Creatine Kinase 50 U/L (39-308)
[2017-12-14] MEDS: Insulin NovoLOG Aspart Correctional Sugar Inj SQ SCH ×2 (18:14→22:35)
[2017-12-14] MEDS: LORazepam 0.5 MG Tablet PO PRN (18:22)
--- NOTE | 2017-12-14 19:12 | ECHRPT ---
Indication: Essential (primary) hypertension CONCLUSIONS The left ventricular systolic function is poorly imaged - cannot adequately assess LVEF other than t o say it is above 35%. Wall thickness is measured at the upper limits of normal. Normal left ventricular size. Poorly visualized The left atrial size is moderately dilated. Mild mitral valve regurgitation. Moderate mitral annular calcification. Moderate thickening of the mitral valve leaflets. Poorly visualized. Poorly visualized The pulmonary valve is not well visualized. The inferior vena cava is not well visualized. BP: / HR: Rhythm: Sinus MEASUREMENTS (Male / Female) Normal Values Technical Quality:Very technically difficult study 2D ECHO LV Diastolic Diameter PLAX 5.4 cm 4.2 - 5.9 / 3.9 - 5.3 cm LV Systolic Diameter PLAX 4.5 cm IVS Diastolic Thickness 1.3 cm 0.6 - 1.0 / 0.6 - 0.9 cm LVPW Diastolic Thickness 1.3 cm 0.6 - 1.0 / 0.6 - 0.9 cm LV Relative Wall Thickness 0.5 LVOT Diameter 2.0 cm M-MODE Aortic Root Diameter MM 2.6 cm LA Systolic Diameter MM 5.0 cm LA Ao Ratio MM 1.9 AV Cusp Separation MM 1.5 cm DOPPLER AV Peak Velocity 172.0 cm/s AV Peak Gradient 11.8 mmHg AV Mean Gradient 7.0 mmHg AV Velocity Time Integral 35.3 cm LVOT Peak Velocity 109.0 cm/s LVOT Peak Gradient 4.8 mmHg AV Area Cont Eq pk 2.0 cm MR Peak Velocity 586.0 cm/s MR Peak Gradient 137.4 mmHg Mitral E Point Velocity 122.0 cm/s Mitral A Point Velocity 162.0 cm/s Mitral E to A Ratio 0.8 LV E' Lateral Velocity 5.1 cm/s Mitral E to LV E' Lateral Ratio 24.1 LV E' Septal Velocity 5.0 cm/s Mitral E to LV E' Septal Ratio 24.5 FINDINGS LEFT VENTRICLE The left ventricular systolic function is poorly imaged - cannot adequately assess LVEF other than t o say it is above 35%. Wall thickness is measured at the upper limits of normal. Normal left ventricular size. RIGHT VENTRICLE Poorly visualized LEFT ATRIUM The left atrial size is moderately dilated. RIGHT ATRIUM The right atrial size is normal. MITRAL VALVE Mild mitral valve regurgitation. Moderate mitral annular calcification. Moderate thickening of the mitral valve leaflets. AORTIC VALVE Poorly visualized. TRICUSPID VALVE Poorly visualized PULMONARY VALVE The pulmonary valve is not well visualized. VESSELS The inferior vena cava is not well visualized. PERICARDIUM No pericardial effusion. Augustine Salazar MD (Electronically Signed) Final Date:14 December 2017 19:11
--- NOTE | 2017-12-14 20:05 | US ---
EXAM DATE: 12/14/2017 7:57 PM EDT AGE/SEX: 67 years / Male INDICATIONS: Syncope. CLINICAL DATA: This is the patient's initial encounter. Patient reports that signs and symptoms have been present for 1 day and indicates a pain score of 5/10. MEDICAL/SURGICAL HISTORY: Chronic obstructive pulmonary disease. Gastroesophageal reflux disea se. Hypertension. Acute pulmonary edema. Asthma. Arthritis. Coronary artery disease. Congestive hea rt failure. Cirrhosis. Dementia. Depression. Diabetes. Neuropathy. BPH. ETOH abuse. Scabies. Gastric ulcer. Myocardial infarction. Hiatal hernia. MRSA. Cholecystectomy. Cervical spine fusion. Cardiac c atheterization. Inguinal hernia repair. Colostomy reversal. Colectomy. Right hip replacement. COMPARISON: No prior exams available for comparison. VELOCITY PARAMETERS: ICA/CCA Ratio: Right 1.62 , Left 1.1 ICA: Right 207 cm/sec, Left 107 cm/sec CCA: Right 128 cm/sec, Left 97 cm/sec ECA: Right 92 cm/sec, Left 122 cm/sec Vertebral: Right 50 cm/sec antegrade, Left 62 cm/sec antegrade FINDINGS: Right Carotid: Moderate arteriosclerotic plaque is visualized.The waveforms are within normal limits . Left Carotid: Mild arteriosclerotic plaque is visualized. The waveforms are within normal limits. Other: None. CONCLUSION: 1. Right Internal Carotid Artery: Findings indicate <50% stenosis. 2. Left Internal Carotid Artery: Findings indicate <50% stenosis. 3. Antegrade flow in both vertebral arteries. Electronically signed by: Sammy Chun MD 12/14/2017 8:03 PM EDT
[2017-12-14] MEDS ORDERED: Divalproex 250 MG ER Tablet PO SCH (21:00)
[2017-12-14] MEDS ORDERED: Melatonin 5 MG Tablet PO SCH (21:00)
[2017-12-14] MEDS: Senna/Docusate Sodium 8.6/50 MG Tablet PO SCH (21:43)
[2017-12-14] MEDS: Pregabalin 75 MG Capsule PO SCH (21:43)
[2017-12-14] MEDS: lamoTRIgine 100 MG Tablet PO SCH (21:43)
--- NOTE | 2017-12-14 21:46 | ECG ---
Date Performed: 12/14/2017 Time Performed: 10:18:12 PTAGE: 67 years EKG: Sinus rhythm MARKED LEFT AXIS DEVIATION LBBB ABNORMAL ECG PREVIOUS TRACING : 09/25/2017 08.41 Since the previous tracing, no significant change noted DOCTOR: Ludmila Longo Interpretating Date/Time 12/18/2017 07:29:42
[2017-12-14 22:21] LABS: Creatine Kinase 65 U/L (39-308)
[2017-12-15 04:28] VITALS: RESP 16
[2017-12-15] MEDS: Insulin NovoLOG Aspart Correctional Sugar Inj SQ SCH ×3 (05:06→13:45)
[2017-12-15] MEDS ORDERED: Metoprolol Tartrate 25 MG Tablet PO SCH (09:00)
[2017-12-15] MEDS ORDERED: INSULIN DEGLUDEC 90 UNIT SQ SCH (09:00)
[2017-12-15] MEDS: Sodium Chloride 1 GM Tablet PO SCH ×2 (09:02→12:39)
[2017-12-15] MEDS: buPROPion 150 MG XL 24 HR Tablet PO SCH (09:02)
[2017-12-15] MEDS: Pregabalin 75 MG Capsule PO SCH (09:03)
[2017-12-15] MEDS: Gabapentin 300 MG Capsule PO SCH ×2 (09:03→12:39)
[2017-12-15] MEDS: Senna/Docusate Sodium 8.6/50 MG Tablet PO SCH (09:03)
[2017-12-15] MEDS: LORazepam 0.5 MG Tablet PO PRN (09:04)
[2017-12-15] MEDS: lamoTRIgine 100 MG Tablet PO SCH (09:04)
--- NOTE | 2017-12-15 11:40 | P.PNIM ---
Subjective Interval history: Patient is a 67-year-old male who states he was on the toilet at his prison facility and most of falling asleep and next thing he knows he was falling and hit his head, right shoulder, and right knee. He states that a couple weeks ago he had the right knee replacement by Dr. Orellana. Patient does not recall taking any blood thinners at the SNF. Denies any chest pain, denies any shortness of breath denies any issues prior to falling off the toilet. He denies any loss of consciousness. Patient was found to have hyponatremia here on lab work. Past medical history is significant for anxiety and depression, dementia, neuropathy, diabetes mellitus insulin requiring, history of dizziness, hypertension, acute pain from the right knee and some anxiety and insomnia. Patient will be observed in the observation unit will get echoes and carotids and trend troponins give him some sodium chloride tablets to replace his hyponatremia 8-10 AWAIT LABS- FINALLY CAME BACK IF STABLE BACK TO SNF AM LABS PENDING CONTINUE PT AND OT NO NEW COMPLAINTS SODIUM IS UP TO 132 CAN DC TO SNF WITH NACL TABS Physical Exam Vital signs: Vital Signs 12/14/17 13:52 12/14/17 16:00 12/14/17 17:25 Temperature 97.8 F Pulse Rate 73 72 78 Respiratory Rate 18 16 16 Blood Pressure 142/84 H 174/59 H 165/74 H Pulse Oximetry 99 97 98 12/14/17 17:29 12/14/17 20:00 12/14/17 20:45 Temperature 98.3 F Pulse Rate 82 72 71 Respiratory Rate 16 18 Blood Pressure 162/78 H 125/70 Pulse Oximetry 100 12/15/17 00:00 12/15/17 04:00 12/15/17 08:00 Temperature 97.8 F 97.5 F L 97.5 F L Pulse Rate 71 65 68 Respiratory Rate 18 16 16 Blood Pressure 134/66 141/64 H 144/72 H Pulse Oximetry 97 100 98 Intake & Output 12/14/17 12/15/17 12/15/17 18:59 06:59 18:59 Weight 77.111 kg Narrative: GENERAL: Awake alert and oriented 3 talkative and cooperative in mild acute distress SKIN: Warm and dry. HEAD: Atraumatic. Normocephalic. EYES: Pupils equal and round. No scleral icterus. No injection or drainage. EOMI ENT: No nasal bleeding or discharge. Mucous membranes pink and moist. Tongue is midline NECK: Trachea midline. No JVD. Supple CARDIOVASCULAR: Regular rate and rhythm. S1-S2 no S3 or S4 RESPIRATORY: No accessory muscle use. Clear to auscultation. Breath sounds equal bilaterally. GASTROINTESTINAL: Abdomen soft, non-tender, nondistended. Hepatic and splenic margins not palpable. MUSCULOSKELETAL: Extremities without clubbing, cyanosis, or edema. No obvious deformities. NEUROLOGICAL: Awake and alert. No obvious cranial nerve deficits. Motor grossly within normal limits. Five out of 5 muscle strength in the arms and legs. Normal speech. Right knee is dressed with Steri-Strips over the right knee PSYCHIATRIC: Appropriate mood and affect; insight and judgment normal. Does have some dementia Results - Labs CBC & Chem 7: 12/15/17 12:26 12/15/17 12:26 Laboratory Results - last 24 hr 12/14/17 12/14/17 12/14/17 10:35 16:37 16:37 PT 12.2 H INR 1.2 APTT 30.9 H POC Glucose Total Creatine Kinase 90 50 Troponin I Less than 0.02 L Less than 0.02 L 12/14/17 12/14/17 12/14/17 17:20 21:27 21:57 PT INR APTT POC Glucose 217 H 149 H Total Creatine Kinase 65 Troponin I Less than 0.02 L 12/15/17 12/15/17 03:56 08:55 PT INR APTT POC Glucose 105 118 H Total Creatine Kinase Troponin I - Imaging Impressions Carotid Doppler Study 12/14/17 00:00 CONCLUSION: 1. Right Internal Carotid Artery: Findings indicate <50% stenosis. 2. Left Internal Carotid Artery: Findings indicate <50% stenosis. 3. Antegrade flow in both vertebral arteries. Head CT 12/14/17 09:57 CONCLUSION: 1. No bleed or other acute intracranial abnormality. 2. Mild to moderate ventriculomegaly. Normal pressure hydrocephalus would be in the differential. 3. Chronic white matter changes. 4. Mild ethmoid sinus disease. . Humerus X-Ray 12/14/17 12:15 CONCLUSION: Intact right humerus. Assessment and Plan - Plan Status post fall from toilet after falling asleep and then trying to get up Possible Near syncope/ syncope -We will continue with troponins and cardiac enzymes every 62 more -Check a urinalysis with C/S -We will get echocardiogram STABLE -We will get carotids STAB;E -Continue on Lovenox Hyponatremia will continue on sodium chloride tablets a NEW RX FOR NACL TABS Recent right total knee arthroplasty will consult physical therapy and occupational therapy since patient has been seeing them at SNF Depression and anxiety resume home medications Diabetes mellitus continue on insulin with sliding scale coverage before meals and at bedtime and home insulin dose with a diabetic diet Chronic neuropathy continue on his gabapentin and Lyrica Benadryl as needed for itching Continue on his anxiety and depression meds as well as his dementia medications Continue on his divalproex and lamotrigine and bupropion. Meds for chronic constipation Hypertension continue on his Coreg Meclizine as needed for dizziness Benadryl as needed for allergies/itchy DVT prophylaxis with Lovenox GI prophylaxis as needed CAN BE DCED BACK TO SNF ON NACL TABS Code Status: FULL CODE Discussed Condition With: RN AND PT AND STAVE INSPECTOR Discharge Planning: DC TO SNF ON NACL TABS
[2017-12-15 12:33] VITALS: BP 154/70; PULSE 59; TEMP 96.8; O2SAT 100
[2017-12-15 12:54] LABS: Baso % (Auto) 0.6 % (0.0-2.0); Eos # (Auto) 0.1 th/mm3 (0.0-0.4); Eos % (Auto) 2.6 % (0.0-4.0); Hematocrit 36.9 % (39.0-51.0); Hemoglobin 12.8 gm/dL (13.0-17.0); Lymph # (Auto) 0.7 th/mm3 (1.0-4.8); Lymph % (Auto) 12.2 % (9.0-44.0); Mean Corpuscular HGB Conc 34.6 % (32.0-36.0); Mean Corpuscular Hemoglobin 33.1 pg (27.0-34.0); Mean Corpuscular Volume 95.8 fL (80.0-100.0); Mean Platelet Volume 6.2 fL (7.0-11.0); Mono # (Auto) 0.5 th/mm3 (0.0-0.9); Mono % (Auto) 8.6 % (0.0-8.0); Neut # (Auto) 4.3 th/mm3 (1.8-7.7); Platelet Count 153 th/mm3 (150-450); Red Blood Count 3.86 mil/mm3 (4.50-5.90); Red Cell Distribution Width 14.3 % (11.6-17.2); White Blood Count 5.6 th/mm3 (4.0-11.0)
[2017-12-15 13:02] LABS: INR 1.2 Ratio; Prothrombin Time 12.6 sec (9.8-11.6)
[2017-12-15 13:12] LABS: Alanine Aminotransferase 21 U/L (12-78); Albumin 3.6 g/dL (3.4-5.0); Anion Gap 7 meq/L (5-15); Aspartate Aminotransferase 16 U/L (15-37); Blood Urea Nitrogen 14 mg/dL (7-18); Calcium 9.1 mg/dL (8.5-10.1); Carbon Dioxide 29.4 meq/L (21.0-32.0); Chloride 96 meq/L (98-107); Cholesterol 136 mg/dL (120-200); Glomerular Filtration Rate 71 mL/min (>89); Glucose,Random 126 mg/dL (74-106); Magnesium 2.4 mg/dL (1.5-2.5); Potassium 4.6 meq/L (3.5-5.1); Sodium 132 meq/L (136-145)
[2017-12-15 13:22] LABS: Alkaline Phosphatase 86 U/L (45-117); Chol/HDL Ratio 2.87 Ratio; Free T4 (Free Thyroxine) 1.17 ng/dL (0.76-1.46); HDL Cholesterol 47.3 mg/dL (40.0-60.0); LDL Cholesterol,Calculated 57 mg/dL (0-99); Phosphorus 3.6 mg/dL (2.5-4.9); Total Protein 7.6 g/dL (6.4-8.2); Triglycerides 158 mg/dL (42-150)
--- NOTE | 2017-12-15 14:39 | P.DS ---
Date of admission: 12/14/17 13:14 Primary care physician: Remy Caputo MD Attending physician on discharge: Vinny Edmond Anticipated date of discharge: 12/15/17 Brief History from admission: Patient is a 67-year-old male who states he was on the toilet at his retirement facility and most of falling asleep and next thing he knows he was falling and hit his head, right shoulder, and right knee. He states that a couple weeks ago he had the right knee replacement by Dr. Orellana. Patient does not recall taking any blood thinners at the SNF. Denies any chest pain, denies any shortness of breath denies any issues prior to falling off the toilet. He denies any loss of consciousness. Patient was found to have hyponatremia here on lab work. Past medical history is significant for anxiety and depression, dementia, neuropathy, diabetes mellitus insulin requiring, history of dizziness, hypertension, acute pain from the right knee and some anxiety and insomnia. Patient will be observed in the observation unit will get echoes and carotids and trend troponins give him some sodium chloride tablets to replace his hyponatremia Patient will be monitored. DS: Diagnosis - Discharge Diagnosis (1) Acute hyponatremia Status: Acute (2) Fall Status: Acute DS: Medications - Discharge Medications Prescriptions: hydrocodone-acetaminophen 1 tab PO Q6H PRN #12 tab PRN Reason: Pain lorazepam 0.5 mg PO TID PRN #9 tab PRN Reason: Anxiety sodium chloride 1 gm PO TID #90 tab DS: Summary Hospital Course: Patient is a 67-year-old male who states he was on the toilet at his retirement facility and most of falling asleep and next thing he knows he was falling and hit his head, right shoulder, and right knee. He states that a couple weeks ago he had the right knee replacement by Dr. Orellana. Patient does not recall taking any blood thinners at the SNF. Denies any chest pain, denies any shortness of breath denies any issues prior to falling off the toilet. He denies any loss of consciousness. Patient was found to have hyponatremia here on lab work. Past medical history is significant for anxiety and depression, dementia, neuropathy, diabetes mellitus insulin requiring, history of dizziness, hypertension, acute pain from the right knee and some anxiety and insomnia. Patient will be observed in the observation unit will get echoes and carotids and trend troponins give him some sodium chloride tablets to replace his hyponatremia 8-10 AWAIT LABS- FINALLY CAME BACK IF STABLE BACK TO SNF AM LABS PENDING CONTINUE PT AND OT NO NEW COMPLAINTS SODIUM IS UP TO 132 CAN DC TO SNF WITH NACL TABS echo is stable carotids are stable can go back to snf for pt and ot - Time Spent with Patient Total time spent providing and/or coordinating discharge services: Greater than 30 minutes - Quality: VTE Deep Vein Thrombosis/Pulmonary Embolism Present on Admission: No Exam Vital signs: Vital Signs 12/14/17 16:00 12/14/17 17:25 12/14/17 17:29 Temperature 97.8 F Pulse Rate 72 78 82 Respiratory Rate 16 16 16 Blood Pressure 174/59 H 165/74 H 162/78 H Pulse Oximetry 97 98 12/14/17 20:00 12/14/17 20:45 12/15/17 00:00 Temperature 98.3 F 97.8 F Pulse Rate 72 71 71 Respiratory Rate 18 18 Blood Pressure 125/70 134/66 Pulse Oximetry 100 97 12/15/17 04:00 12/15/17 07:05 12/15/17 08:00 Temperature 97.5 F L 97.5 F L Pulse Rate 65 66 68 Respiratory Rate 16 16 Blood Pressure 141/64 H 144/72 H Pulse Oximetry 100 98 12/15/17 11:00 12/15/17 12:00 Temperature 96.8 F L Pulse Rate 65 59 L Respiratory Rate 16 Blood Pressure 154/70 H Pulse Oximetry 100 Intake & Output 12/14/17 12/15/17 12/15/17 18:59 06:59 18:59 Weight 77.111 kg Narrative: GENERAL: Awake alert and oriented 3 talkative and cooperative in mild acute distress SKIN: Warm and dry. HEAD: Atraumatic. Normocephalic. EYES: Pupils equal and round. No scleral icterus. No injection or drainage. EOMI ENT: No nasal bleeding or discharge. Mucous membranes pink and moist. Tongue is midline NECK: Trachea midline. No JVD. Supple CARDIOVASCULAR: Regular rate and rhythm. S1-S2 no S3 or S4 RESPIRATORY: No accessory muscle use. Clear to auscultation. Breath sounds equal bilaterally. GASTROINTESTINAL: Abdomen soft, non-tender, nondistended. Hepatic and splenic margins not palpable. MUSCULOSKELETAL: Extremities without clubbing, cyanosis, or edema. No obvious deformities. NEUROLOGICAL: Awake and alert. No obvious cranial nerve deficits. Motor grossly within normal limits. Five out of 5 muscle strength in the arms and legs. Normal speech. Right knee is dressed with Steri-Strips over the right knee PSYCHIATRIC: Appropriate mood and affect; insight and judgment normal. Does have some dementia Results Procedures completed during hospitalization: none Labs on day of discharge: Labs from last 24 hours 12/15/17 12/15/17 12/15/17 12:34 12:26 12:26 WBC RBC Hgb Hct MCV MCH MCHC RDW Plt Count MPV Neut % (Auto) Lymph % (Auto) [place] % (Auto) Eos % (Auto) Baso % (Auto) Neut # (Auto) Lymph # (Auto) [place] # (Auto) Eos # (Auto) Baso # (Auto) WBC Differential Differential Comment PT INR APTT Sodium 132 L Potassium 4.6 Chloride 96 L Carbon Dioxide 29.4 Anion Gap 7 BUN 14 Creatinine 1.04 Estimated GFR 71 L POC Glucose 163 H Random Glucose 126 H Hemoglobin A1c Pending Calcium 9.1 Phosphorus 3.6 Magnesium 2.4 Total Bilirubin 0.6 AST 16 ALT 21 Alkaline Phosphatase 86 Total Creatine Kinase Troponin I Total Protein 7.6 Albumin 3.6 Triglycerides 158 H Cholesterol 136 LDL Cholesterol, Calc 57 HDL Cholesterol 47.3 Cholesterol/HDL Ratio 2.87 TSH 3.730 Free T4 1.17 12/15/17 12/15/17 12/15/17 12:26 12:26 08:55 WBC 5.6 RBC 3.86 L Hgb 12.8 L Hct 36.9 L MCV 95.8 MCH 33.1 MCHC 34.6 RDW 14.3 Plt Count 153 MPV 6.2 L Neut % (Auto) 76.0 H Lymph % (Auto) 12.2 [place] % (Auto) 8.6 H Eos % (Auto) 2.6 Baso % (Auto) 0.6 Neut # (Auto) 4.3 Lymph # (Auto) 0.7 L [place] # (Auto) 0.5 Eos # (Auto) 0.1 Baso # (Auto) 0.0 WBC Differential . Differential Comment Auto diff final PT 12.6 H INR 1.2 APTT Sodium Potassium Chloride Carbon Dioxide Anion Gap BUN Creatinine Estimated GFR POC Glucose 118 H Random Glucose Hemoglobin A1c Calcium Phosphorus Magnesium Total Bilirubin AST ALT Alkaline Phosphatase Total Creatine Kinase Troponin I Total Protein Albumin Triglycerides Cholesterol LDL Cholesterol, Calc HDL Cholesterol Cholesterol/HDL Ratio TSH Free T4 12/15/17 12/14/17 12/14/17 03:56 21:57 21:27 WBC RBC Hgb Hct MCV MCH MCHC RDW Plt Count MPV Neut % (Auto) Lymph % (Auto) [place] % (Auto) Eos % (Auto) Baso % (Auto) Neut # (Auto) Lymph # (Auto) [place] # (Auto) Eos # (Auto) Baso # (Auto) WBC Differential Differential Comment PT INR APTT Sodium Potassium Chloride Carbon Dioxide Anion Gap BUN Creatinine Estimated GFR POC Glucose 105 149 H Random Glucose Hemoglobin A1c Calcium Phosphorus Magnesium Total Bilirubin AST ALT Alkaline Phosphatase Total Creatine Kinase 65 Troponin I Less than 0.02 L Total Protein Albumin Triglycerides Cholesterol LDL Cholesterol, Calc HDL Cholesterol Cholesterol/HDL Ratio TSH Free T4 12/14/17 12/14/17 12/14/17 17:20 16:37 16:37 WBC RBC Hgb Hct MCV MCH MCHC RDW Plt Count MPV Neut % (Auto) Lymph % (Auto) [place] % (Auto) Eos % (Auto) Baso % (Auto) Neut # (Auto) Lymph # (Auto) [place] # (Auto) Eos # (Auto) Baso # (Auto) WBC Differential Differential Comment PT 12.2 H INR 1.2 APTT 30.9 H Sodium Potassium Chloride Carbon Dioxide Anion Gap BUN Creatinine Estimated GFR POC Glucose 217 H Random Glucose Hemoglobin A1c Calcium Phosphorus Magnesium Total Bilirubin AST ALT Alkaline Phosphatase Total Creatine Kinase 50 Troponin I Less than 0.02 L Total Protein Albumin Triglycerides Cholesterol LDL Cholesterol, Calc HDL Cholesterol Cholesterol/HDL Ratio TSH Free T4 - Impressions ITS Impressions Carotid Doppler Study 12/14/17 00:00 CONCLUSION: 1. Right Internal Carotid Artery: Findings indicate <50% stenosis. 2. Left Internal Carotid Artery: Findings indicate <50% stenosis. 3. Antegrade flow in both vertebral arteries. Chest X-Ray 12/14/17 09:28 CONCLUSION: No acute disease.. Knee X-Ray 12/14/17 09:28 CONCLUSION: Intact right knee/arthroplasty. Nonspecific joint effusion and prepatellar soft tissue swelling. Shoulder X-Ray 12/14/17 09:28 CONCLUSION: 1. No fracture or subluxation of the right shoulder. 2. Previous rotator cuff repair. Degenerative changes as above. Head CT 12/14/17 09:57 CONCLUSION: 1. No bleed or other acute intracranial abnormality. 2. Mild to moderate ventriculomegaly. Normal pressure hydrocephalus would be in the differential. 3. Chronic white matter changes. 4. Mild ethmoid sinus disease. . Humerus X-Ray 12/14/17 12:15 CONCLUSION: Intact right humerus. Discharge Plan - Discharge Disposition Patient Disposition: Discharge to SNF - Discharge Condition Condition: Stable - Discharge Order Discharge Orders: Discharge Order (Routine); Ordered 12/15/17 Ordered By: Vinny Edmond - Discharge Details Anticipated Discharge Date: 12/15/17 Discharge Comment: dc to snf today - Physicians Team Primary Care Provider: Remy Caputo Attending Provider: Vinny Edmond Other Providers: Jinn,Agency
--- NOTE | 2017-12-15 15:49 | ECG ---
Date Performed: 12/14/2017 Time Performed: 16:20:17 PTAGE: 67 years EKG: Sinus rhythm WITH FIRST DEGREE AV BLOCK MARKED LEFT AXIS DEVIATION Left bundle branch block. ABNORMAL ECG PREVIOUS TRACING : 12/14/2017 10.18 DOCTOR: Jt Zhong Interpretating Date/Time 12/15/2017 15:48:02
--- NOTE | 2017-12-15 15:49 | ECG ---
Date Performed: 12/15/2017 Time Performed: 04:24:23 PTAGE: 67 years EKG: SINUS BRADYCARDIA WITH SINUS ARRHYTHMIA WITH FIRST DEGREE AV BLOCK MARKED LEFT AXIS DEVIATI ON LEFT BUNDLE BRANCH BLOCK ABNORMAL ECG PREVIOUS TRACING : 12/14/2017 16.20 DOCTOR: Jt Zhong Interpretating Date/Time 12/15/2017 15:48:18
== END 2017-12-15 17:06 ==
LOC: NEPE 08:37 → NEDA 08:37 → NEPHCDU 08:37
PROVIDERS: ADMIT Hospitalist; ATTEND Hospitalist